=== PATIENT | female | born 1990 | race Caucasian/White ===

== ENCOUNTER → 2017-07-16 | Outpatient (CLI) | payer OTHER | END | disposition home or self-care (01) | LOC: C.PAPS 14:14 | PROVIDERS: ATTEND Obstetrics & Gynecology | DX: Z01.419 Encounter for gynecological examination (general) (routine) without abnormal findings (principal) ==

== ENCOUNTER → 2017-08-11 | Outpatient (CLI) | payer OTHER ==
--- NOTE | 2017-08-11 11:42 | DIAGNOSTIC IMAGING REPORT ---
HYSTEROSALPINGOGRAM HISTORY: Infertility. FLUOROSCOPY TIME: 0.5 minutes. 5 fluoroscopic spot images of the pelvis. TECHNIQUE: The cervix was cannulated by the limousine rental clerk-couturiere and water soluble contrast was instilled into the uterus under fluoroscopic guidance. Multiple spot images were obtained. FINDINGS: The uterine cavity is normal in size, shape, and position. The left fallopian tube is patent and there is free peritoneal spill bilaterally. Small peritubal adhesion within the right fallopian tube which demonstrated breakthrough of contrast during the examination and free intraperitoneal spill. IMPRESSION: 1. The uterus and left fallopian tube are within normal limits. 2. Small peritubal adhesion within the right fallopian tube which demonstrated breakthrough of contrast during the examination and free intraperitoneal spill. Electronically signed by: Buddy Alvarez M.D. 08/11/2017 11:41 AM Dictated Date/Time: 08/11/2017 11:40 AM
--- NOTE | 2017-08-11 12:23 | OPERATIVE REPORT ---
DATE OF OPERATION: 08/11/2017 PREOPERATIVE DIAGNOSIS: Infertility. POSTOPERATIVE DIAGNOSIS: Same. PROCEDURE: Hysterosalpingogram. SURGEON: Karina Ramey MD DESCRIPTION OF PROCEDURE: The patient was identified in the radiology suite by her bracelet and birthdate. It was confirmed that we were doing hysterosalpingogram. Her period ended 10 days ago. She was given no preoperative antibiotics. She has no allergies. The patient was placed in a frogleg position. The speculum was placed in vagina. The cervix was cleaned with Betadine. The anterior lip of the cervix was grasped with an Allis. The introducer was placed into the cervix. The dye was injected into the cervix until the adequate pictures were taken by radiology and the procedure was terminated. All instruments removed from the vagina. Hemostasis was noted to be excellent and the patient was discharged home in stable condition. I attest to the content of the Intraoperative Record and any orders documented therein. Any exception s are noted below.
== END | disposition home or self-care (01) ==
LOC: C.RAD 10:59
PROVIDERS: ATTEND Obstetrics & Gynecology
DX: N97.9 Female infertility, unspecified (principal); N73.6 Female pelvic peritoneal adhesions (postinfective)

== ENCOUNTER → 2017-11-23 | Outpatient (CLI) | payer OTHER | END | disposition home or self-care (01) | LOC: C.LAB1850 07:15 | PROVIDERS: ATTEND Specialist | DX: Z32.00 Encounter for pregnancy test, result unknown (principal) ==

== ENCOUNTER → 2017-11-26 | Outpatient (CLI) | payer OTHER ==
[2017-11-26 13:23] LABS: FOLLICLE STIMULAT HORMONE 14.14 IU/L
== END | disposition home or self-care (01) ==
LOC: C.LAB1850 12:01
PROVIDERS: ATTEND Specialist
DX: Z31.41 Encounter for fertility testing (principal)

== ENCOUNTER → 2017-12-18 | Outpatient (CLI) | payer OTHER | END | disposition home or self-care (01) | LOC: C.LAB1850 08:59 | PROVIDERS: ATTEND Specialist | DX: Z32.00 Encounter for pregnancy test, result unknown (principal) ==

== ENCOUNTER 2018-09-15 08:15 | Inpatient (IN) ==
[2018-09-15] MEDS ORDERED: OXYTOCIN 30 UNITS/500 ML BAG IV PRN ×3 (08:38→18:33)
[2018-09-15 09:10] LABS: Hematocrit (blood only) 37.5 % (37-47); Mean Corpuscular Volume 88.4 fL (80-100); Mean Platelet Volume 9.8 fL (7.4-10.4); Platelet Count 207 K/uL (130-400); RDW Coefficient of Variation 13.2 % (11.5-14.5); RDW Standard Deviation 42.2 fL (36.4-46.3); Red Blood Count 4.24 M/uL (4.2-5.4); White Blood Count 11.82 K/uL (4.8-10.8)
[2018-09-15 09:12] LABS: Mean Corpuscular Hgb Conc 34.7 g/dL (32-36)
--- NOTE | 2018-09-15 09:19 | History & Physical Report ---
Date of Service September 15, 2018 Assessment & Plan (1) PROM (premature rupture of membranes): 27 year old here for PROM * A-, GBS-. Rubella Immune, received Rhogam at 28 weeks * Will induce labor with oxytocin 30 units in 500 mL per labor induction protocol * NPO * Anticipate Normal Vaginal Delivery * Informed pediatrics about [facility]'s recommendation for post delivery echo and provided report History of Present Illness Primary Care Provider: Criss Julian DO Grzegorz Grossman is a 27 year who presents today after her water broke this morning around 5:30. She has not been having regular contractions though she does get some strong contractions sporadically throughout the day for past 2 days. She has not noticed any prior discharge but since her water broke this morning she also is noticing a scant amount of blood. Patient has felt good movement for past several days, but has had periods in her where she felt decreased movement. She does not endorse any vision changes, abdominal pain, headaches, or hand swelling. Some mild pedal edema. OB HISTORY No previous pregnancies. Current complicated by maternal obesity, polycystic ovarian syndrome and patient is Rh negative. There was difficulty in evaluating patient' s heart structures on ultrasound, unable to rule out VSD referred to [facility] for echo. echo showed left heart size on lower limit of normal and mild flow acceleration across ductal arch. Recommendation was for post-delivery echo. Patient also with decreased movement at last appointment. Had NST which was non reactive and was sent over to L and D for monitoring. Had reactive NST here and was sent home with reassurance at that time. Blood type is A-, GBS -, Rubella Immune. All other serologic testing normal. At last appointment 09/10 patient was found to be 2-3/70/-2 on exam. PMH: Depression Oral herpes simplex GERD PSH: [place] teeth Tonsils and adenoids Gall bladder Gastric sleeve Family History: No significant family history provided Social History: Here with partner, Lynnette, and mother Allergies Allergy/AdvReac Type Severity Reaction Status Date / Time No Known Allergies Allergy Unknown Verified 08/09/18 19:08 Home Medications Home Medications Medication Instructions Recorded Confirmed Type PNV cmb#95-ferrous fumarate-FA 1 tab PO DAILY 09/15/18 09/15/18 History [] sertraline [Zoloft] 50 mg PO DAILY 09/15/18 09/15/18 History Past Med/Surg History Medical History [place] teeth extracted Cholecystectomy planned Surgical History Hx of tonsillectomy H/O bariatric surgery Social History Communication Ability: Effective Polisher Brass Required: No Beliefs That Will Affect Care: None marital status: Current Living Situation: Spouse Current Living Situation Comment: [place] in a townhouse Other Information That Helps Us Care for You: No Feels Safe at Home: Yes Smoking Status: Never smoker Second Hand Exposure: No Hx Alcohol Use: No Hx Substance Use: No Physical Exam Constitutional: WD/WN, vitals as above Respiratory: normal respiratory effort, lungs clear to auscultation Cardiovascular: Rate/Rhythm: regular rate and regular rhythm Heart Sounds: no click, no gallop, no murmur and no cardiac rub Vessels: dorsalis pedis pulses present Extremities: + pedal edema (mild) Gastrointestinal (Abdomen): Inspection/Auscultation: abdomen normal to inspection Percussion/Palpation: abdomen soft; abdomen nontender Gravid uterus otherwise soft non tender abdomen Skin: no rashes, warm and dry Results & Data Vital Signs (Past 12 Hours) Vital Signs Temp Pulse Resp BP 09/15/18 08:34 36.7 C 107 H 18 133/89 09/15/18 08:30 107 H 133/89 Supervising Physician Co-Signing Physician Notes Resident Physician Supervision Note: I interviewed and examined the patient. Discussed with Dr. Patel and agree with findings and plan as documented in the note. Any exceptions or clarifications are listed here: pt seen and examined and sve 3/70/-2 arom forebag clear. no regular ctx. fhts categ 1. discussed ambulation with intermittent monitoring and rec for pitocin induction if no labor pattern by 4- 6hr from rom. pt agreeable. rh neg, echo findings noted. gbs neg. efw 7- 8#. Documented By: Amairani Farrell MD, FACOG Resident Activity Tracking Resident Involvement: Resident Care Provided Care Provided: OB Delivery
--- NOTE | 2018-09-15 12:11 | Obstetrical Progress Note ---
Date of Service September 15, 2018 Assessment & Plan (1) PROM (premature rupture of membranes): spoke to nurse. pt ambulating. no real ctx pattern. rec pitocin. orders placed. nursing to relay my recommendations to pt and let me know if any questions. now approx 6hr from rom. (2) with 37 weeks completed gestation: Results & Data Vital Signs (Past 12 Hours) Vital Signs Temp Pulse Resp BP 09/15/18 11:25 98.8 F 80 20 125/68 09/15/18 08:34 98.1 F 107 H 18 133/89 09/15/18 08:30 107 H 133/89
[2018-09-15] MEDS: LACTATED RINGER'S 1,000 ML IV PRN ×4 (12:50→22:30)
[2018-09-15] MEDS ORDERED: BUPIVACAINE 0.25% 30 ML VIAL ONE ×2 (14:21→21:59)
[2018-09-15] MEDS ORDERED: ePHEDrine sulfate 50 MG/ML AMP ONE (14:22)
[2018-09-15] MEDS ORDERED: fentaNYL citrate 100 MCG/2 ML VIAL ONE ×2 (14:22→21:58)
[2018-09-15] MEDS ORDERED: fentaNYL 2MCG/ML ROPIV 1.25MG/ML 100 ML BAG EPI ONE (14:22)
--- NOTE | 2018-09-15 14:29 | Obstetrical Progress Note ---
Date of Service September 15, 2018 Assessment & Plan (1) with 37 weeks completed gestation: (2) PROM (premature rupture of membranes): cont with pit. epidural desired, consult anesthesia. fhts categ 1. Subjective pt feeling more pain with ctx and requests epidural, she is getting her ivf bolus right now. i was called by nurse for consideration of internal monitors due to not able to trace baby or ctx well. Physical Exam Constitutional: WD/WN, vitals as above Genitourinary: Manual OB Exam: + cervical dilation 4 cm, + cervical effacement 80% and + station -2 OB Exam Monitor Tracing: + external FHT monitor used (135 mod variability), + external uterine monitor used (not traced well. ), + intra-uterine pressure catheter used (IUPC placed and now ctx q3 min, mvu's inadeq, pit at 3) and + category I Results & Data Vital Signs (Past 12 Hours) Vital Signs Temp Pulse Resp BP Pulse Ox 09/15/18 14:21 83 100 09/15/18 14:16 86 100 09/15/18 12:50 98.4 F 88 18 132/81 09/15/18 11:25 98.8 F 80 20 125/68 09/15/18 10:00 98.1 F 16 09/15/18 08:34 98.1 F 107 H 18 133/89 09/15/18 08:30 107 H 133/89
--- NOTE | 2018-09-15 14:40 | Anesthesiology Consultation ---
Date of Service September 15, 2018 Assessment & Plan (1) Encounter for pre-operative examination: Chart Review Chart Review: Acceptable Risk for Labor Epidural History Height/Weight Height: 5 ft 7 in Weight: 147.418 kg Allergies Allergy/AdvReac Type Severity Reaction Status Date / Time No Known Allergies Allergy Unknown Verified 08/09/18 19:08 Medications Home Medications Medication Instructions Recorded Confirmed Last Taken PNV cmb#95-ferrous fumarate-FA 1 tab PO DAILY 09/15/18 09/15/18 09/14/18 [] sertraline [Zoloft] 50 mg PO DAILY 09/15/18 09/15/18 09/15/18 Active Medications Generic Name Dose Route Start Last Admin Trade Name Freq PRN Reason Stop Dose Admin Lactated Ringer's 1,000 mls @ 125 mls/hr 09/15/18 08:38 09/15/18 14:10 Lr IV 09/17/18 08:37 999 mls/hr .Q8H PRN Infusion L&D Protocol Protocol Oxytocin 30 units in 500 mls @ 5 mls/hr 09/15/18 12:09 09/15/18 14:18 Pitocin IV 09/17/18 12:08 0.3 units/hr .Q24H PRN 5 mls/hr Labor Induction/Augmentation Titration Protocol 0.3 UNITS/HR Past Medical History Medical History [place] teeth extracted Cholecystectomy planned Past Surgical History Surgical History Hx of tonsillectomy H/O bariatric surgery Social History Smoking Status: Never smoker Hx Alcohol Use: No Hx Substance Use: No Physical Exam Vital Signs Last Vital Signs Temp 36.9 C 09/15/18 12:50 Pulse 77 09/15/18 14:36 Resp 18 09/15/18 12:50 BP 132/81 09/15/18 12:50 Pulse Ox 100 09/15/18 14:36 Testing Laboratory Results 09/15/18 08:51
[2018-09-15] MEDS ORDERED: NALOXONE HCL 0.4 MG/1 ML VIAL/CARP IV PRN (15:22)
[2018-09-15] MEDS ORDERED: ePHEDrine sulfate 50 MG/ML AMP IV PRN (15:22)
[2018-09-15] MEDS ORDERED: ONDANSETRON INJ 2 MG/ML 2 ML VIAL IV PRN (15:22)
[2018-09-15] MEDS ORDERED: NALOXONE HCL 1 MG in SODIUM CHLORIDE 0.9% 1000ML 1,000 ML IV PRN (15:22)
--- NOTE | 2018-09-15 18:30 | Obstetrical Progress Note ---
Date of Service September 15, 2018 Subjective pt comfortable, says she feels some pressure on and off but no overwhelming. Physical Exam Constitutional: WD/WN, vitals as above Genitourinary: Manual OB Exam: + cervical dilation 4 cm, + cervical effacement 80% and + station -2 OB Exam Monitor Tracing: + external FHT monitor used (150 mod variability, +scalp stim response ), + intra-uterine pressure catheter used (ctx irreg, doubt mvu's adeq pit at 11) and + category II (variables) Results & Data Vital Signs (Past 12 Hours) Vital Signs Temp Pulse Resp BP Pulse Ox 09/15/18 18:26 84 100 09/15/18 18:21 68 100 09/15/18 18:16 70 100 09/15/18 18:14 74 129/75 09/15/18 18:11 70 100 09/15/18 18:06 76 100 09/15/18 18:01 75 126/69 100 09/15/18 17:56 68 100 09/15/18 17:51 65 100 09/15/18 17:46 82 100 09/15/18 17:45 83 93 09/15/18 17:44 72 145/89 H 09/15/18 17:41 67 100 09/15/18 17:36 66 100 09/15/18 17:31 70 100 09/15/18 17:29 64 151/86 H 09/15/18 17:26 66 100 09/15/18 17:21 73 100 09/15/18 17:16 82 100 09/15/18 17:14 74 100/58 L 09/15/18 17:11 71 100 09/15/18 17:06 70 100 09/15/18 17:01 85 99 09/15/18 17:00 90 117/77 09/15/18 16:56 70 100 09/15/18 16:51 73 100 09/15/18 16:46 76 100 09/15/18 16:45 80 18 142/92 H 09/15/18 16:41 69 100 09/15/18 16:36 86 100 09/15/18 16:31 72 18 148/76 H 100 09/15/18 16:26 82 100 09/15/18 16:21 78 100 09/15/18 16:16 87 139/61 100 09/15/18 16:15 97.9 F 18 09/15/18 16:06 70 100 09/15/18 16:01 72 100 09/15/18 15:57 69 18 134/63 09/15/18 15:56 76 100 09/15/18 15:55 78 130/58 L 09/15/18 15:53 76 18 134/58 L 09/15/18 15:51 75 139/63 100 09/15/18 15:50 77 138/63 09/15/18 15:47 88 18 130/70 09/15/18 15:46 84 141/68 H 100 09/15/18 15:44 87 18 145/76 H 09/15/18 15:42 81 140/64 09/15/18 15:41 79 100 09/15/18 15:39 88 18 138/63 09/15/18 15:37 95 H 133/66 09/15/18 15:36 88 18 123/60 100 09/15/18 15:34 84 124/66 09/15/18 15:32 84 18 137/63 09/15/18 15:31 90 100 09/15/18 15:28 92 H 18 130/60 09/15/18 15:26 89 100 09/15/18 15:25 93 H 125/57 L 09/15/18 15:24 85 135/59 L 09/15/18 15:21 88 138/64 100 09/15/18 15:20 94 H 135/60 09/15/18 15:16 92 H 103/56 L 100 09/15/18 15:14 86 18 107/58 L 09/15/18 15:12 83 118/58 L 09/15/18 15:11 88 100 09/15/18 15:10 99 H 18 129/58 L 09/15/18 15:08 98 H 129/61 09/15/18 15:06 98 H 128/85 100 09/15/18 15:04 85 157/88 H 09/15/18 15:01 85 99 09/15/18 14:56 79 99 09/15/18 14:51 92 H 81 L 09/15/18 14:50 83 87 L 09/15/18 14:46 85 100 09/15/18 14:43 98.2 F 96 H 18 85 L 09/15/18 14:41 85 100 09/15/18 14:36 77 100 09/15/18 14:31 81 100 09/15/18 14:26 77 100 09/15/18 14:21 83 100 09/15/18 14:16 86 100 09/15/18 12:50 98.4 F 88 18 132/81 09/15/18 11:25 98.8 F 80 20 125/68 09/15/18 10:00 98.1 F 16 09/15/18 08:34 98.1 F 107 H 18 133/89 09/15/18 08:30 107 H 133/89
[2018-09-15] MEDS ORDERED: Nursing to Pharmacy Communication ONE (20:34)
--- NOTE | 2018-09-15 21:19 | Obstetrical Progress Note ---
Date of Service September 15, 2018 Assessment & Plan (1) PROM (premature rupture of membranes): (2) with 37 weeks completed gestation: cont with pit to keep mvu's adeq. consult anesth for pain control. good cx change compared to my last exam. Subjective feeling alot of pain with ctx Physical Exam Constitutional: WD/WN, vitals as above Genitourinary: Manual OB Exam: + cervical dilation 5 cm, + cervical effacement 90% and + station 0 OB Exam Monitor Tracing: + scalp electrode used (150 mod variability, +accels, +variable decels), + intra-uterine pressure catheter used (mvus adeq, pit at 14) and + category II Results & Data Vital Signs (Past 12 Hours) Vital Signs Temp Pulse Resp BP Pulse Ox 09/15/18 21:13 82 149/83 H 09/15/18 21:11 90 99 09/15/18 21:06 79 99 09/15/18 21:01 97 H 100 09/15/18 20:58 83 140/77 09/15/18 20:56 85 100 09/15/18 20:54 18 09/15/18 20:51 72 100 09/15/18 20:46 80 100 09/15/18 20:43 69 134/82 09/15/18 20:41 69 100 09/15/18 20:36 74 100 09/15/18 20:31 79 100 09/15/18 20:29 69 133/73 09/15/18 20:26 81 100 09/15/18 20:21 79 100 09/15/18 20:16 80 100 09/15/18 20:15 68 131/70 09/15/18 20:11 98.4 F 79 18 98 09/15/18 20:06 68 100 09/15/18 20:01 67 100 09/15/18 20:00 69 132/61 09/15/18 19:56 79 100 09/15/18 19:51 70 100 09/15/18 19:46 72 100 09/15/18 19:43 66 140/80 09/15/18 19:41 65 100 09/15/18 19:36 63 100 09/15/18 19:31 81 100 09/15/18 19:28 75 134/73 09/15/18 19:26 79 100 09/15/18 19:21 72 99 05 19:16 68 99 05 19:13 68 136/82 05 19:11 98.2 F 76 18 100 05 19:06 70 100 05 19:01 76 100 05 18:58 68 132/77 05 18:56 71 100 05 18:51 74 100 05 18:46 67 100 05 18:45 72 93 05 18:43 75 134/82 05 18:41 73 96 05 18:36 73 100 05 18:31 73 100 05 18:29 74 133/73 05 18:26 84 100 05 18:21 68 100 09/15/18 18:18 98.1 F 18 09/15/18 18:16 70 100 09/15/18 18:14 74 129/75 09/15/18 18:11 70 100 05 18:06 76 100 09/15/18 18:01 75 126/69 100 05 17:56 68 100 09/15/18 17:51 65 100 09/15/18 17:46 82 100 09/15/18 17:45 83 93 09/15/18 17:44 72 145/89 H 09/15/18 17:41 67 100 09/15/18 17:36 66 100 09/15/18 17:31 70 100 09/15/18 17:29 64 151/86 H 09/15/18 17:26 66 100 09/15/18 17:21 73 100 09/15/18 17:16 82 100 09/15/18 17:14 74 100/58 L 09/15/18 17:11 71 100 09/15/18 17:06 70 100 09/15/18 17:01 85 99 09/15/18 17:00 90 117/77 09/15/18 16:56 70 100 09/15/18 16:51 73 100 05 16:46 76 100 09/15/18 16:45 80 18 142/92 H 09/15/18 16:41 69 100 05 16:36 86 100 05/22/19 16:31 72 18 148/76 H 100 09/15/18 16:26 82 100 09/15/18 16:21 78 100 09/15/18 16:16 87 139/61 100 09/15/18 16:15 97.9 F 18 09/15/18 16:06 70 100 09/15/18 16:01 72 100 09/15/18 15:57 69 18 134/63 09/15/18 15:56 76 100 09/15/18 15:55 78 130/58 L 09/15/18 15:53 76 18 134/58 L 09/15/18 15:51 75 139/63 100 09/15/18 15:50 77 138/63 09/15/18 15:47 88 18 130/70 09/15/18 15:46 84 141/68 H 100 09/15/18 15:44 87 18 145/76 H 09/15/18 15:42 81 140/64 09/15/18 15:41 79 100 09/15/18 15:39 88 18 138/63 09/15/18 15:37 95 H 133/66 09/15/18 15:36 88 18 123/60 100 09/15/18 15:34 84 124/66 09/15/18 15:32 84 18 137/63 09/15/18 15:31 90 100 09/15/18 15:28 92 H 18 130/60 09/15/18 15:26 89 100 09/15/18 15:25 93 H 125/57 L 09/15/18 15:24 85 135/59 L 09/15/18 15:21 88 138/64 100 09/15/18 15:20 94 H 135/60 09/15/18 15:16 92 H 103/56 L 100 09/15/18 15:14 86 18 107/58 L 09/15/18 15:12 83 118/58 L 09/15/18 15:11 88 100 09/15/18 15:10 99 H 18 129/58 L 09/15/18 15:08 98 H 129/61 09/15/18 15:06 98 H 128/85 100 09/15/18 15:04 85 157/88 H 09/15/18 15:01 85 99 09/15/18 14:56 79 99 05/19 14:51 92 H 81 L 09/15/18 14:50 83 87 L 09/15/18 14:46 85 100 09/15/18 14:43 98.2 F 96 H 18 85 L 09/15/18 14:41 85 100 09/15/18 14:36 77 100 09/15/18 14:31 81 100 09/15/18 14:26 77 100 09/15/18 14:21 83 100 09/15/18 14:16 86 100 09/15/18 12:50 98.4 F 88 18 132/81 09/15/18 11:25 98.8 F 80 20 125/68 09/15/18 10:00 98.1 F 16
[2018-09-15] MEDS ORDERED: SODIUM CHLORIDE 0.9% INJ 10 ML VIAL ONE (21:28)
[2018-09-15] MEDS: fentaNYL 2MCG/ML ROPIV 1.25MG/ML 100 ML BAG EPI PRN (22:11)
--- NOTE | 2018-09-16 03:17 | Obstetrical Progress Note ---
Date of Service September 16, 2018 Assessment & Plan (1) with 37 weeks completed gestation: (2) PROM (premature rupture of membranes): good cx change. fhts categ 2, was going to try amnioinfusion but at this point variables can be explained by cx change. anticip pushing soon. Subjective had her epidural replaced. worked at first but now with right sided pain. she does feel pressure Physical Exam Constitutional: WD/WN, vitals as above Genitourinary: Manual OB Exam: + cervical dilation 9 cm (with ctx), + cervical effacement 100% and + station + 2 (with ctx) OB Exam Monitor Tracing: + scalp electrode used (135 mod variability, +accels +variable decels. +response to scalp stim), + intra-uterine pressure catheter used (q2-3 mvus about 180, pit at 6) and + category II Results & Data Vital Signs (Past 12 Hours) Vital Signs Temp Pulse Resp BP Pulse Ox 09/16/18 03:07 107 H 97 09/16/18 03:04 97 H 145/94 H 09/16/18 03:02 96 H 100 09/16/18 02:57 84 98 09/16/18 02:54 85 143/91 H 09/16/18 02:52 82 98 09/16/18 02:51 93 H 174/96 H 09/16/18 02:47 85 98 09/16/18 02:44 99.1 F 20 09/16/18 02:42 107 H 158/79 H 97 09/16/18 02:37 94 H 97 09/16/18 02:35 95 H 167/88 H 09/16/18 02:32 87 97 09/16/18 02:27 92 H 98 09/16/18 02:22 97 H 97 09/16/18 02:20 82 138/80 09/16/18 02:17 80 98 09/16/18 02:12 86 98 09/16/18 02:07 82 98 09/16/18 02:06 87 131/77 09/16/18 02:02 81 98 09/16/18 01:57 90 97 09/16/18 01:52 86 97 09/16/18 01:49 83 16 123/58 L 09/16/18 01:47 80 97 09/16/18 01:42 99.5 F 89 16 98 09/16/18 01:37 86 98 09/16/18 01:34 101 H 145/85 H 09/16/18 01:32 85 97 09/16/18 01:27 80 97 09/16/18 01:25 16 09/16/18 01:22 82 97 09/16/18 01:19 96 H 143/86 H 09/16/18 01:17 88 98 09/16/18 01:12 100 H 97 09/16/18 01:07 98 H 98 09/16/18 01:04 90 16 137/81 09/16/18 01:02 81 97 09/16/18 00:57 83 97 09/16/18 00:52 80 98 09/16/18 00:49 90 132/77 09/16/18 00:47 82 97 09/16/18 00:42 80 98 09/16/18 00:37 76 98 09/16/18 00:34 78 138/75 09/16/18 00:32 76 99 09/16/18 00:27 86 99 09/16/18 00:22 85 100 09/16/18 00:19 93 H 146/80 H 09/16/18 00:17 81 100 09/16/18 00:15 99.1 F 09/16/18 00:12 91 H 99 09/16/18 00:07 96 H 99 09/16/18 00:04 100 H 16 131/78 09/16/18 00:02 84 100 09/15/18 23:57 80 99 09/15/18 23:52 77 98 05 23:49 76 126/65 05 23:47 77 98 05 23:42 77 98 05 23:37 76 99 05 23:35 77 122/63 0519 23:32 81 100 05 23:27 90 100 05 23:22 81 100 05 23:19 98.6 F 16 09/15/18 23:17 95 H 133/67 100 05 23:12 92 H 160/90 H 100 05 23:07 81 100 05 23:06 87 16 132/63 05 23:02 89 142/63 H 100 05/22/19 22:59 95 H 93 09/15/18 22:57 84 100 09/15/18 22:56 85 121/63 09/15/18 22:52 85 100 09/15/18 22:51 80 126/70 09/15/18 22:47 98 H 114/62 100 09/15/18 22:41 88 130/72 100 09/15/18 22:40 16 09/15/18 22:36 93 H 130/63 99 09/15/18 22:31 103 H 122/63 100 09/15/18 22:30 96 H 18 126/64 09/15/18 22:28 116 H 92 09/15/18 22:26 107 H 125/71 99 09/15/18 22:25 105 H 125/73 09/15/18 22:21 114 H 99 09/15/18 22:18 103 H 158/94 H 09/15/18 22:16 104 H 97 09/15/18 22:12 105 H 94 09/15/18 22:11 110 H 98 09/15/18 22:06 102 H 99 09/15/18 22:03 106 H 150/87 H 09/15/18 22:01 121 H 98 09/15/18 21:58 102 H 146/85 H 09/15/18 21:56 93 H 192/94 H 97 09/15/18 21:51 95 H 97 09/15/18 21:49 86 162/96 H 09/15/18 21:46 97 H 156/97 H 97 09/15/18 21:43 100 H 146/98 H 09/15/18 21:41 93 H 99 09/15/18 21:40 102 H 151/80 H 09/15/18 21:38 98.2 F 20 09/15/18 21:36 82 99 09/15/18 21:31 91 H 100 09/15/18 21:29 90 139/71 09/15/18 21:26 98 H 97 09/15/18 21:21 87 98 09/15/18 21:18 90 90 09/15/18 21:16 82 99 09/15/18 21:13 82 149/83 H 09/15/18 21:11 90 99 09/15/18 21:06 79 99 09/15/18 21:01 97 H 100 05 20:58 83 140/77 05 20:56 85 100 05/19 20:54 18 05 20:51 72 100 0519 20:46 80 100 05/19 20:43 69 134/82 05 20:41 69 100 052219 20:36 74 100 05 20:31 79 100 052219 20:29 69 133/73 0519 20:26 81 100 05/22/19 20:21 79 100 0519 20:16 80 100 0519 20:15 68 131/70 05 20:11 98.4 F 79 18 98 05 20:06 68 100 05 20:01 67 100 05 20:00 69 132/61 05 19:56 79 100 05 19:51 70 100 05 19:46 72 100 05 19:43 66 140/80 05 19:41 65 100 05 19:36 63 100 05 19:31 81 100 05 19:28 75 134/73 05 19:26 79 100 05 19:21 72 99 0519 19:16 68 99 05 19:13 68 136/82 05 19:11 98.2 F 76 18 100 05 19:06 70 100 05 19:01 76 100 0519 18:58 68 132/77 0519 18:56 71 100 0519 18:51 74 100 05/22/19 18:46 67 100 05/22/19 18:45 72 93 05/19 18:43 75 134/82 0519 18:41 73 96 05//19 18:36 73 100 0519 18:31 73 100 05/2219 18:29 74 133/73 0522/19 18:26 84 100 052219 18:21 68 100 05//19 18:18 98.1 F 18 05//19 18:16 70 100 09/15/18 18:14 74 129/75 09/15/18 18:11 70 100 09/15/18 18:06 76 100 09/15/18 18:01 75 126/69 100 09/15/18 17:56 68 100 09/15/18 17:51 65 100 09/15/18 17:46 82 100 09/15/18 17:45 83 93 09/15/18 17:44 72 145/89 H 09/15/18 17:41 67 100 09/15/18 17:36 66 100 09/15/18 17:31 70 100 09/15/18 17:29 64 151/86 H 09/15/18 17:26 66 100 09/15/18 17:21 73 100 09/15/18 17:16 82 100 09/15/18 17:14 74 100/58 L 09/15/18 17:11 71 100 09/15/18 17:06 70 100 09/15/18 17:01 85 99 09/15/18 17:00 90 117/77 09/15/18 16:56 70 100 09/15/18 16:51 73 100 09/15/18 16:46 76 100 09/15/18 16:45 80 18 142/92 H 09/15/18 16:41 69 100 09/15/18 16:36 86 100 09/15/18 16:31 72 18 148/76 H 100 09/15/18 16:26 82 100 09/15/18 16:21 78 100 09/15/18 16:16 87 139/61 100 09/15/18 16:15 97.9 F 18 09/15/18 16:06 70 100 09/15/18 16:01 72 100 09/15/18 15:57 69 18 134/63 09/15/18 15:56 76 100 09/15/18 15:55 78 130/58 L 09/15/18 15:53 76 18 134/58 L 09/15/18 15:51 75 139/63 100 09/15/18 15:50 77 138/63 09/15/18 15:47 88 18 130/70 09/15/18 15:46 84 141/68 H 100 09/15/18 15:44 87 18 145/76 H 09/15/18 15:42 81 140/64 09/15/18 15:41 79 100 09/15/18 15:39 88 18 138/63 09/15/18 15:37 95 H 133/66 09/15/18 15:36 88 18 123/60 100 09/15/18 15:34 84 124/66 09/15/18 15:32 84 18 137/63 09/15/18 15:31 90 100 09/15/18 15:28 92 H 18 130/60 09/15/18 15:26 89 100 09/15/18 15:25 93 H 125/57 L 09/15/18 15:24 85 135/59 L 09/15/18 15:21 88 138/64 100 09/15/18 15:20 94 H 135/60 09/15/18 15:16 92 H 103/56 L 100 09/15/18 15:14 86 18 107/58 L 09/15/18 15:12 83 118/58 L
[2018-09-16] MEDS: LACTATED RINGER'S 1,000 ML IV PRN (03:29)
--- NOTE | 2018-09-16 03:47 | Obstetrical Progress Note ---
Date of Service September 16, 2018 Assessment & Plan (1) with 37 weeks completed gestation: (2) PROM (premature rupture of membranes): good cx change but ctx inadeq and still a rim. will try to get her more comfortable, consult anesth. will start amnioinfusion. pt aware of plan. Subjective has right sided pain but not severe. Physical Exam Constitutional: WD/WN, vitals as above Genitourinary: Manual OB Exam: + cervical dilation (rim with ctx ), + cervical effacement 100% and + station + 1 OB Exam Monitor Tracing: + scalp electrode used (150 mod variability, +scalp stim response. +variables. ) and + category II Results & Data Vital Signs (Past 12 Hours) Vital Signs Temp Pulse Resp BP Pulse Ox 09/16/18 03:42 95 H 99 09/16/18 03:37 99.0 F 88 99 09/16/18 03:34 85 16 136/71 09/16/18 03:32 95 H 99 09/16/18 03:27 102 H 99 09/16/18 03:22 92 H 98 09/16/18 03:19 96 H 137/63 09/16/18 03:17 88 99 09/16/18 03:12 100 H 99 09/16/18 03:07 107 H 97 09/16/18 03:04 97 H 145/94 H 09/16/18 03:02 96 H 100 09/16/18 02:57 84 98 09/16/18 02:54 85 143/91 H 09/16/18 02:52 82 98 09/16/18 02:51 93 H 174/96 H 09/16/18 02:47 85 98 09/16/18 02:44 99.1 F 20 09/16/18 02:42 107 H 158/79 H 97 09/16/18 02:37 94 H 97 09/16/18 02:35 95 H 167/88 H 09/16/18 02:32 87 97 09/16/18 02:27 92 H 98 09/16/18 02:22 97 H 97 09/16/18 02:20 82 138/80 09/16/18 02:17 80 98 09/16/18 02:12 86 98 09/16/18 02:07 82 98 09/16/18 02:06 87 131/77 09/16/18 02:02 81 98 09/16/18 01:57 90 97 09/16/18 01:52 86 97 09/16/18 01:49 83 16 123/58 L 09/16/18 01:47 80 97 09/16/18 01:42 99.5 F 89 16 98 09/16/18 01:37 86 98 09/16/18 01:34 101 H 145/85 H 09/16/18 01:32 85 97 09/16/18 01:27 80 97 09/16/18 01:25 16 09/16/18 01:22 82 97 09/16/18 01:19 96 H 143/86 H 09/16/18 01:17 88 98 09/16/18 01:12 100 H 97 09/16/18 01:07 98 H 98 09/16/18 01:04 90 16 137/81 09/16/18 01:02 81 97 09/16/18 00:57 83 97 09/16/18 00:52 80 98 09/16/18 00:49 90 132/77 09/16/18 00:47 82 97 09/16/18 00:42 80 98 09/16/18 00:37 76 98 09/16/18 00:34 78 138/75 09/16/18 00:32 76 99 09/16/18 00:27 86 99 09/16/18 00:22 85 100 09/16/18 00:19 93 H 146/80 H 09/16/18 00:17 81 100 09/16/18 00:15 99.1 F 09/16/18 00:12 91 H 99 09/16/18 00:07 96 H 99 09/16/18 00:04 100 H 16 131/78 09/16/18 00:02 84 100 05 23:57 80 99 05 23:52 77 98 0522 23:49 76 126/65 05 23:47 77 98 05 23:42 77 98 05 23:37 76 99 05 23:35 77 122/63 052219 23:32 81 100 0522 23:27 90 100 05 23:22 81 100 05 23:19 98.6 F 16 0519 23:17 95 H 133/67 100 09/15/18 23:12 92 H 160/90 H 100 09/15/18 23:07 81 100 09/15/18 23:06 87 16 132/63 09/15/18 23:02 89 142/63 H 100 09/15/18 22:59 95 H 93 09/15/18 22:57 84 100 09/15/18 22:56 85 121/63 09/15/18 22:52 85 100 09/15/18 22:51 80 126/70 09/15/18 22:47 98 H 114/62 100 09/15/18 22:41 88 130/72 100 09/15/18 22:40 16 09/15/18 22:36 93 H 130/63 99 09/15/18 22:31 103 H 122/63 100 09/15/18 22:30 96 H 18 126/64 09/15/18 22:28 116 H 92 09/15/18 22:26 107 H 125/71 99 09/15/18 22:25 105 H 125/73 09/15/18 22:21 114 H 99 09/15/18 22:18 103 H 158/94 H 09/15/18 22:16 104 H 97 09/15/18 22:12 105 H 94 09/15/18 22:11 110 H 98 09/15/18 22:06 102 H 99 09/15/18 22:03 106 H 150/87 H 09/15/18 22:01 121 H 98 09/15/18 21:58 102 H 146/85 H 09/15/18 21:56 93 H 192/94 H 97 09/15/18 21:51 95 H 97 09/15/18 21:49 86 162/96 H 09/15/18 21:46 97 H 156/97 H 97 09/15/18 21:43 100 H 146/98 H 09/15/18 21:41 93 H 99 09/15/18 21:40 102 H 151/80 H 09/15/18 21:38 98.2 F 20 09/15/18 21:36 82 99 09/15/18 21:31 91 H 100 09/15/18 21:29 90 139/71 09/15/18 21:26 98 H 97 09/15/18 21:21 87 98 05 21:18 90 90 05 21:16 82 99 05 21:13 82 149/83 H 05 21:11 90 99 05 21:06 79 99 05 21:01 97 H 100 05 20:58 83 140/77 05 20:56 85 100 05 20:54 18 05 20:51 72 100 05 20:46 80 100 05 20:43 69 134/82 05 20:41 69 100 05 20:36 74 100 05 20:31 79 100 05 20:29 69 133/73 05 20:26 81 100 05 20:21 79 100 05 20:16 80 100 05 20:15 68 131/70 05 20:11 98.4 F 79 18 98 05 20:06 68 100 05 20:01 67 100 05 20:00 69 132/61 05 19:56 79 100 05 19:51 70 100 05 19:46 72 100 05 19:43 66 140/80 05 19:41 65 100 05 19:36 63 100 05 19:31 81 100 05 19:28 75 134/73 05 19:26 79 100 05 19:21 72 99 0519 19:16 68 99 05 19:13 68 136/82 05 19:11 98.2 F 76 18 100 05 19:06 70 100 05 19:01 76 100 05 18:58 68 132/77 0519 18:56 71 100 05 18:51 74 100 05 18:46 67 100 05 18:45 72 93 0519 18:43 75 134/82 05 18:41 73 96 05/ 18:36 73 100 05 18:31 73 100 05 18:29 74 133/73 05 18:26 84 100 09/15/18 18:21 68 100 09/15/18 18:18 98.1 F 18 09/15/18 18:16 70 100 09/15/18 18:14 74 129/75 09/15/18 18:11 70 100 09/15/18 18:06 76 100 09/15/18 18:01 75 126/69 100 05 17:56 68 100 09/15/18 17:51 65 100 09/15/18 17:46 82 100 09/15/18 17:45 83 93 09/15/18 17:44 72 145/89 H 09/15/18 17:41 67 100 09/15/18 17:36 66 100 09/15/18 17:31 70 100 09/15/18 17:29 64 151/86 H 09/15/18 17:26 66 100 09/15/18 17:21 73 100 09/15/18 17:16 82 100 09/15/18 17:14 74 100/58 L 09/15/18 17:11 71 100 09/15/18 17:06 70 100 09/15/18 17:01 85 99 09/15/18 17:00 90 117/77 09/15/18 16:56 70 100 09/15/18 16:51 73 100 09/15/18 16:46 76 100 09/15/18 16:45 80 18 142/92 H 09/15/18 16:41 69 100 09/15/18 16:36 86 100 09/15/18 16:31 72 18 148/76 H 100 09/15/18 16:26 82 100 09/15/18 16:21 78 100 09/15/18 16:16 87 139/61 100 09/15/18 16:15 97.9 F 18 09/15/18 16:06 70 100 09/15/18 16:01 72 100 09/15/18 15:57 69 18 134/63 05 15:56 76 100 05 15:55 78 130/58 L 09/15/18 15:53 76 18 134/58 L 09/15/18 15:51 75 139/63 100 09/15/18 15:50 77 138/63 09/15/18 15:47 88 18 130/70 09/15/18 15:46 84 141/68 H 100
[2018-09-16] MEDS: fentaNYL 2MCG/ML ROPIV 1.25MG/ML 100 ML BAG EPI PRN (05:43)
[2018-09-16] MEDS ORDERED: Nursing to Pharmacy Communication ONE (05:45)
[2018-09-16] MEDS ORDERED: OXYTOCIN 30 UNITS/500 ML BAG IV PRN (07:49)
[2018-09-16] MEDS ORDERED: ACETAMINOPHEN 325 MG TAB PO PRN (07:49)
[2018-09-16] MEDS ORDERED: OXYCODONE/ACETAMINOPHEN 5mg/325mg TAB PO PRN (07:49)
[2018-09-16] MEDS ORDERED: OXYTOCIN 20 UNITS in LACTATED RINGER'S 1,000 ML IV SCH (08:00)
[2018-09-16] MEDS ORDERED: DIPHTHERIA/TETANUS/PERTUSSIS 0.5 ML SYR/VIAL IM ONE (08:30)
[2018-09-16] MEDS ORDERED: HYDROCORTISONE ACETATE 25 MG SUPP PR PRN (08:30)
[2018-09-16] MEDS ORDERED: SUPERCREAM 0.870% 15 GM JAR EXT PRN (08:30)
[2018-09-16] MEDS ORDERED: BENZOCAINE 20% AER SPR 82.5 GM CAN EXT PRN (08:30)
[2018-09-16] MEDS ORDERED: LACTATED RINGER'S 1,000 ML IV SCH (08:30)
--- NOTE | 2018-09-16 08:31 | Delivery Summary ---
DATE OF OPERATION: 09/16/2018 The patient dilated to complete and pushed to deliver a viable female infant via Apgars 8,9 over a small second-degree perineal laceration. With delivery of the cephalic, loose nuchal cord x1 noted and reduced. The shoulders and body delivered with ease. Infant was vigorous and crying at . Cord clamped at 30 seconds of life and infant to maternal abdomen where the cord was then doubly clamped and cut. The infant to radiant warmer for drying and attention. Cord blood and gases obtained. Placenta delivered spontaneously and intact, 3-vessel cord. Hemostasis achieved with dilute Pitocin and uterine massage. Cervix and sulci intact. Laceration repaired in the usual fashion using 3-0 Vicryl. EBL 300 mL. Mother and baby stable in recovery. Bladder drained under sterile conditions for 50 mL. I attest to the content of the Intraoperative Record and any orders documented therein. Any exceptions are noted below. MTDD
[2018-09-16 08:34] LABS: Base Excess Cord Venous Blood -4.6 mEq/L (-7.7-1.9); Cord Venous Blood HCO3 21 mmol/L (18.4-26.8); Cord Venous Blood PCO2 40 mmHg (30.4-57.2); Cord Venous Blood PO2 32 mmHg (14.1-43.3); Cord Venous Blood pH 7.33 (7.20-7.44); O2 Saturation Cord Venous Bld 68.5 % (<68)
--- NOTE | 2018-09-16 08:59 | Anesthesia Procedure Note ---
Date of Service September 16, 2018 Anesthesia Post Epidural Note Vital Signs Vital Signs: Temp Pulse Resp BP Pulse Ox 09/16/18 08:50 87 20 139/74 09/16/18 08:35 87 20 137/79 09/16/18 08:21 93 H 134/67 09/16/18 08:20 20 09/16/18 08:05 96 H 20 126/83 09/16/18 07:50 91 H 20 118/73 09/16/18 07:37 107 H 99 09/16/18 07:32 113 H 98 09/16/18 07:27 99 H 100 09/16/18 07:26 97 H 129/79 09/16/18 07:22 101 H 83 L 09/16/18 07:17 89 98 09/16/18 07:12 99 H 98 09/16/18 07:11 105 H 90 09/16/18 07:10 86 151/81 H 09/16/18 07:07 101 H 100 09/16/18 07:05 37.1 C 20 09/16/18 07:02 101 H 99 09/16/18 06:57 86 99 09/16/18 06:56 90 127/68 09/16/18 06:52 93 H 99 09/16/18 06:47 86 97 09/16/18 06:42 99 H 99 09/16/18 06:40 88 139/73 09/16/18 06:37 99 H 100 09/16/18 06:32 96 H 99 09/16/18 06:27 102 H 99 09/16/18 06:25 86 138/68 09/16/18 06:22 86 99 09/16/18 06:17 88 99 09/16/18 06:12 102 H 98 09/16/18 06:11 96 H 144/86 H 09/16/18 06:07 85 98 09/16/18 06:02 79 98 09/16/18 05:57 110 H 100 09/16/18 05:56 95 H 16 112/59 L 09/16/18 05:52 94 H 99 09/16/18 05:47 97 H 99 09/16/18 05:42 85 99 09/16/18 05:40 93 H 145/79 H 09/16/18 05:37 104 H 100 05/23/19 05:32 91 H 100 09/16/18 05:27 88 99 09/16/18 05:25 96 H 138/78 09/16/18 05:22 90 100 09/16/18 05:17 86 100 09/16/18 05:12 91 H 99 09/16/18 05:10 90 16 135/70 09/16/18 05:07 103 H 98 09/16/18 05:02 84 98 09/16/18 04:57 94 H 99 09/16/18 04:55 83 128/69 09/16/18 04:52 85 98 09/16/18 04:47 84 99 09/16/18 04:42 37.0 C 111 H 18 137/68 99 09/16/18 04:37 99 H 100 09/16/18 04:32 89 100 09/16/18 04:27 91 H 99 09/16/18 04:25 96 H 135/76 09/16/18 04:23 93 H 134/73 09/16/18 04:22 108 H 100 09/16/18 04:21 93 H 133/71 09/16/18 04:19 99 H 137/75 09/16/18 04:17 90 129/69 99 09/16/18 04:16 18 09/16/18 04:15 89 130/74 09/16/18 04:13 93 H 129/74 09/16/18 04:12 102 H 98 09/16/18 04:11 93 H 126/76 09/16/18 04:09 87 124/74 09/16/18 04:07 86 115/69 98 09/16/18 04:04 90 130/80 09/16/18 04:02 89 98 09/16/18 03:57 88 98 09/16/18 03:52 99 H 99 09/16/18 03:49 81 131/59 L 09/16/18 03:47 99 H 99 09/16/18 03:42 95 H 99 09/16/18 03:37 37.2 C 88 99 09/16/18 03:34 85 16 136/71 09/16/18 03:32 95 H 99 09/16/18 03:27 102 H 99 09/16/18 03:22 92 H 98 09/16/18 03:19 96 H 137/63 05 03:17 88 99 05/23/19 03:12 100 H 99 09/16/18 03:07 107 H 97 09/16/18 03:04 97 H 145/94 H 09/16/18 03:02 96 H 100 09/16/18 02:57 84 98 09/16/18 02:54 85 143/91 H 09/16/18 02:52 82 98 09/16/18 02:51 93 H 174/96 H 09/16/18 02:47 85 98 09/16/18 02:44 37.3 C 20 09/16/18 02:42 107 H 158/79 H 97 09/16/18 02:37 94 H 97 09/16/18 02:35 95 H 167/88 H 09/16/18 02:32 87 97 09/16/18 02:27 92 H 98 09/16/18 02:22 97 H 97 09/16/18 02:20 82 138/80 09/16/18 02:17 80 98 09/16/18 02:12 86 98 09/16/18 02:07 82 98 09/16/18 02:06 87 131/77 09/16/18 02:02 81 98 09/16/18 01:57 90 97 09/16/18 01:52 86 97 09/16/18 01:49 83 16 123/58 L 09/16/18 01:47 80 97 09/16/18 01:42 37.5 C 89 16 98 09/16/18 01:37 86 98 09/16/18 01:34 101 H 145/85 H 09/16/18 01:32 85 97 09/16/18 01:27 80 97 09/16/18 01:25 16 09/16/18 01:22 82 97 09/16/18 01:19 96 H 143/86 H 09/16/18 01:17 88 98 09/16/18 01:12 100 H 97 09/16/18 01:07 98 H 98 09/16/18 01:04 90 16 137/81 09/16/18 01:02 81 97 09/16/18 00:57 83 97 09/16/18 00:52 80 98 09/16/18 00:49 90 132/77 09/16/18 00:47 82 97 09/16/18 00:42 80 98 09/16/18 00:37 76 98 09/16/18 00:34 78 138/75 09/16/18 00:32 76 99 09/16/18 00:27 86 99 09/16/18 00:22 85 100 09/16/18 00:19 93 H 146/80 H 09/16/18 00:17 81 100 09/16/18 00:15 37.3 C 09/16/18 00:12 91 H 99 09/16/18 00:07 96 H 99 09/16/18 00:04 100 H 16 131/78 09/16/18 00:02 84 100 09/15/18 23:57 80 99 09/15/18 23:52 77 98 09/15/18 23:49 76 126/65 09/15/18 23:47 77 98 09/15/18 23:42 77 98 09/15/18 23:37 76 99 09/15/18 23:35 77 122/63 09/15/18 23:32 81 100 09/15/18 23:27 90 100 09/15/18 23:22 81 100 09/15/18 23:19 37.0 C 16 09/15/18 23:17 95 H 133/67 100 09/15/18 23:12 92 H 160/90 H 100 09/15/18 23:07 81 100 09/15/18 23:06 87 16 132/63 09/15/18 23:02 89 142/63 H 100 09/15/18 22:59 95 H 93 09/15/18 22:57 84 100 09/15/18 22:56 85 121/63 09/15/18 22:52 85 100 09/15/18 22:51 80 126/70 09/15/18 22:47 98 H 114/62 100 09/15/18 22:41 88 130/72 100 09/15/18 22:40 16 09/15/18 22:36 93 H 130/63 99 09/15/18 22:31 103 H 122/63 100 09/15/18 22:30 96 H 18 126/64 09/15/18 22:28 116 H 92 09/15/18 22:26 107 H 125/71 99 05 22:25 105 H 125/73 09/15/18 22:21 114 H 99 09/15/18 22:18 103 H 158/94 H 09/15/18 22:16 104 H 97 09/15/18 22:12 105 H 94 09/15/18 22:11 110 H 98 09/15/18 22:06 102 H 99 09/15/18 22:03 106 H 150/87 H 09/15/18 22:01 121 H 98 09/15/18 21:58 102 H 146/85 H 09/15/18 21:56 93 H 192/94 H 97 09/15/18 21:51 95 H 97 09/15/18 21:49 86 162/96 H 09/15/18 21:46 97 H 156/97 H 97 09/15/18 21:43 100 H 146/98 H 09/15/18 21:41 93 H 99 09/15/18 21:40 102 H 151/80 H 09/15/18 21:38 36.8 C 20 09/15/18 21:36 82 99 09/15/18 21:31 91 H 100 09/15/18 21:29 90 139/71 09/15/18 21:26 98 H 97 09/15/18 21:21 87 98 09/15/18 21:18 90 90 09/15/18 21:16 82 99 09/15/18 21:13 82 149/83 H 09/15/18 21:11 90 99 09/15/18 21:06 79 99 09/15/18 21:01 97 H 100 09/15/18 20:58 83 140/77 09/15/18 20:56 85 100 09/15/18 20:54 18 09/15/18 20:51 72 100 09/15/18 20:46 80 100 09/15/18 20:43 69 134/82 09/15/18 20:41 69 100 09/15/18 20:36 74 100 09/15/18 20:31 79 100 09/15/18 20:29 69 133/73 09/15/18 20:26 81 100 09/15/18 20:21 79 100 09/15/18 20:16 80 100 09/15/18 20:15 68 131/70 09/15/18 20:11 36.9 C 79 18 98 09/15/18 20:06 68 100 09/15/18 20:01 67 100 05 20:00 69 132/61 05 19:56 79 100 05 19:51 70 100 05 19:46 72 100 05 19:43 66 140/80 05 19:41 65 100 05 19:36 63 100 05 19:31 81 100 05 19:28 75 134/73 05 19:26 79 100 05 19:21 72 99 05 19:16 68 99 05 19:13 68 136/82 05 19:11 36.8 C 76 18 100 09/15/18 19:06 70 100 05 19:01 76 100 05 18:58 68 132/77 05 18:56 71 100 05 18:51 74 100 05 18:46 67 100 05 18:45 72 93 05 18:43 75 134/82 05 18:41 73 96 05 18:36 73 100 05 18:31 73 100 05 18:29 74 133/73 05 18:26 84 100 05 18:21 68 100 05 18:18 36.7 C 18 09/15/18 18:16 70 100 05 18:14 74 129/75 05 18:11 70 100 05 18:06 76 100 05 18:01 75 126/69 100 05 17:56 68 100 05 17:51 65 100 05 17:46 82 100 05 17:45 83 93 05 17:44 72 145/89 H 09/15/18 17:41 67 100 05 17:36 66 100 05 17:31 70 100 05 17:29 64 151/86 H 09/15/18 17:26 66 100 05 17:21 73 100 05 17:16 82 100 05 17:14 74 100/58 L 09/15/18 17:11 71 100 09/15/18 17:06 70 100 09/15/18 17:01 85 99 09/15/18 17:00 90 117/77 09/15/18 16:56 70 100 09/15/18 16:51 73 100 09/15/18 16:46 76 100 09/15/18 16:45 80 18 142/92 H 09/15/18 16:41 69 100 09/15/18 16:36 86 100 09/15/18 16:31 72 18 148/76 H 100 09/15/18 16:26 82 100 09/15/18 16:21 78 100 09/15/18 16:16 87 139/61 100 09/15/18 16:15 36.6 C 18 09/15/18 16:06 70 100 09/15/18 16:01 72 100 09/15/18 15:57 69 18 134/63 09/15/18 15:56 76 100 09/15/18 15:55 78 130/58 L 09/15/18 15:53 76 18 134/58 L 09/15/18 15:51 75 139/63 100 09/15/18 15:50 77 138/63 09/15/18 15:47 88 18 130/70 09/15/18 15:46 84 141/68 H 100 09/15/18 15:44 87 18 145/76 H 09/15/18 15:42 81 140/64 09/15/18 15:41 79 100 09/15/18 15:39 88 18 138/63 09/15/18 15:37 95 H 133/66 09/15/18 15:36 88 18 123/60 100 09/15/18 15:34 84 124/66 09/15/18 15:32 84 18 137/63 09/15/18 15:31 90 100 09/15/18 15:28 92 H 18 130/60 09/15/18 15:26 89 100 09/15/18 15:25 93 H 125/57 L 09/15/18 15:24 85 135/59 L 09/15/18 15:21 88 138/64 100 09/15/18 15:20 94 H 135/60 09/15/18 15:16 92 H 103/56 L 100 09/15/18 15:14 86 18 107/58 L 09/15/18 15:12 83 118/58 L 09/15/18 15:11 88 100 09/15/18 15:10 99 H 18 129/58 L 09/15/18 15:08 98 H 129/61 09/15/18 15:06 98 H 128/85 100 09/15/18 15:04 85 157/88 H 09/15/18 15:01 85 99 09/15/18 14:56 79 99 09/15/18 14:51 92 H 81 L 09/15/18 14:50 83 87 L 09/15/18 14:46 85 100 09/15/18 14:43 36.8 C 96 H 18 85 L 09/15/18 14:41 85 100 09/15/18 14:36 77 100 09/15/18 14:31 81 100 09/15/18 14:26 77 100 09/15/18 14:21 83 100 09/15/18 14:16 86 100 09/15/18 12:50 36.9 C 88 18 132/81 09/15/18 11:25 37.1 C 80 20 125/68 09/15/18 10:00 36.7 C 16 Pain Intensity Bilateral Abdomen: Pain Intensity: 2 Notes Mental Status: alert / awake / arousable Nausea / Vomiting: adequately controlled Pain: adequately controlled Airway Patency, RR, SpO2: stable & adequate BP & HR: stable & adequate Hydration State: stable & adequate Neuraxial Anesthesia: was administered and sensory block is resolving Anesthetic Complications: no major complications apparent and Pt Satisfied with anesthetic care Epidural: Removed without complications and With tip intact
[2018-09-16] MEDS: SERTRALINE HCL 50 MG TABLET PO SCH (09:25)
[2018-09-16] MEDS: DOCUSATE SODIUM 100 MG CAP PO SCH ×2 (09:25→19:15)
[2018-09-16] MEDS: PRENATAL VITAMIN 1 TAB PO SCH (09:25)
[2018-09-16] MEDS: IBUPROFEN 600 MG TAB PO PRN ×3 (09:54→19:15)
[2018-09-16] MEDS ORDERED: SIMETHICONE 80 MG CHEW PO PRN (17:13)
[2018-09-17] MEDS: IBUPROFEN 600 MG TAB PO PRN ×3 (03:33→18:49)
--- NOTE | 2018-09-17 07:02 | Obstetrical Progress Note ---
Date of Service <Vinod Patel MD - Last Filed: 09/17/18 07:02> September 17, 2018 Assessment & Plan <Vinod Patel MD - Last Filed: 09/17/18 07:02> (1) (spontaneous vaginal delivery): 27 year old day 1 s/p Vital Signs Reviewed and WNL Bleeding light Blood type A-, GBS -, Rubella Immune. Needing Rhogam this morning Patient doing very well clinically, eating, walking, passing gas, and using restroom without difficulty Encouraged ambulation as tolerated Encouraged continued breast feeding. Subjective <Vinod Patel MD - Last Filed: 09/17/18 07:02> Ambulation: ambulating normally Voiding: no voiding problems Passing Gas:: Yes Diet Tolerance:: regular diet Lochia:: Small Feeding Type:: breast feeding (Supplementing with formula) Current Pain Level(1-10): 0 Constitutional: no fever and no chills Respiratory: no cough, no dyspnea and no wheezing Cardiovascular: no chest pain, no dyspnea and no calf pain Gastrointestinal: no nausea and no vomiting Physical Exam <Vinod Patel MD - Last Filed: 09/17/18 07:02> Vital Signs (Past 24 Hours) Last Vital Signs Temp 36.6 C 09/17/18 03:30 Pulse 91 H 09/17/18 03:30 Resp 18 09/17/18 03:30 BP 121/74 09/17/18 03:30 Pulse Ox 96 09/17/18 03:30 Constitutional WD/WN, vitals as above Respiratory normal respiratory effort, lungs clear to auscultation Cardiovascular Rate/Rhythm: regular rate and regular rhythm Heart Sounds: no click, no gallop, no murmur and no cardiac rub Vessels: dorsalis pedis pulses present Extremities: + pedal edema (mild) Gastrointestinal (Abdomen) Inspection/Auscultation: abdomen normal to inspection Percussion/Palpation: abdomen soft; abdomen nontender Skin no rashes, warm and dry Genitourinary OB Exam Abdomen: + fundal height Fundus: + firm and + relation to umbilicus (At level of umbilicus); not tender <Karina Ramey MD, FACOG - Last Filed: 09/17/18 07:03> Co-Signing Physician Notes Resident Physician Supervision Note: I interviewed and examined the patient. Discussed with Dr. Patel and agree with findings and plan as documented in the note. Any exceptions or clarifications are listed here: Doing well. Routine care. Documented By: Karina Ramey MD, FACOG Resident Activity Tracking <Vinod Patel MD - Last Filed: 09/17/18 07:02> Resident Involvement: Resident Care Provided Care Provided: OB Delivery
[2018-09-17] MEDS: DOCUSATE SODIUM 100 MG CAP PO SCH ×2 (09:17→20:36)
[2018-09-17] MEDS: PRENATAL VITAMIN 1 TAB PO SCH (09:17)
[2018-09-17] MEDS: SERTRALINE HCL 50 MG TABLET PO SCH (09:17)
[2018-09-18] MEDS: IBUPROFEN 600 MG TAB PO PRN ×3 (04:16→20:28)
--- NOTE | 2018-09-18 07:26 | Obstetrical Progress Note ---
Date of Service September 18, 2018 Subjective Patient unavailable for exam or conversation this morning. She is in a small consultation room with her infant who is on level 2 nursery care (having issues with hypoglycemia yesterday per Dr. Maciel), and in discussion currently with Dr. Garcia. She appears to be seated in a rocker holding her and in no physical distress. Chart reviewed in lieu of rounds with patient at this time. Physical Exam Vital Signs (Past 24 Hours) Last Vital Signs Temp 36.6 C 09/18/18 00:20 Pulse 95 H 09/18/18 00:20 Resp 18 09/18/18 00:20 BP 137/81 09/18/18 00:20 Pulse Ox 99 09/18/18 00:20
[2018-09-18] MEDS: DOCUSATE SODIUM 100 MG CAP PO SCH ×2 (08:49→20:28)
[2018-09-18] MEDS: SERTRALINE HCL 50 MG TABLET PO SCH (08:49)
[2018-09-18] MEDS: PRENATAL VITAMIN 1 TAB PO SCH (08:49)
== END 2018-09-18 21:58 | disposition home or self-care (01) | DRG 807 ==
LOC: OPB 08:15 → 4S1 08:18 → 4S2 09-16 10:10

== ENCOUNTER 2023-12-31 07:30 | Inpatient (IN) ==
[2023-12-31] MEDS: LACTATED RINGER'S 1,000 ML IV PRN (07:47)
[2023-12-31] MEDS ORDERED: LIDOCAINE 1% LOCAL 20 ML VIAL INFIL PRN (08:01)
[2023-12-31] MEDS ORDERED: CALCIUM CARBONATE 500 MG CHEWABLE TAB PO PRN ×2 (08:01→16:02)
[2023-12-31] MEDS ORDERED: OXYTOCIN 30 UNITS/NSS 30 UNITS/500 ML BAG IV PRN (08:01)
[2023-12-31] MEDS ORDERED: ACETAMINOPHEN 325 MG TAB PO PRN (08:01)
[2023-12-31] MEDS ORDERED: SODIUM CHLORIDE 0.9% 1,000 ML IV PRN (08:30)
[2023-12-31] MEDS ORDERED: DEXTROSE 50% 50 ML SYRINGE IV PRN (08:30)
[2023-12-31 08:32] LABS: Hematocrit (blood only) 32.9 % (37.0-47.0); Hemoglobin 11.7 g/dl (12.0-16.0); Mean Corpuscular Hemoglobin 31.4 pg (25.0-34.0); Mean Corpuscular Hgb Conc 35.6 g/dL (32.0-36.0); Mean Corpuscular Volume 88.2 fL (80.0-100.0); Mean Platelet Volume 9.6 fL (9.4-12.4); Platelet Count 201 K/uL (130-400); RDW Coefficient of Variation 13.4 % (11.5-14.5); RDW Standard Deviation 43.4 fL (36.4-46.3); Red Blood Count 3.73 M/uL (4.20-5.40); White Blood Count 9.52 K/ul (4.8-10.8)
[2023-12-31] MEDS: OXYTOCIN 30 UNITS/NSS 30 UNITS/500 ML BAG IV PRN (09:00)
--- NOTE | 2023-12-31 09:22 | History & Physical Report ---
Date of Service December 31, 2023 Assessment & Plan (1) Encounter for supervision of normal intrauterine in multigravida, antepartum: Plan: Pt is a 33 y/o female currently at 4W1D GA with an NAVYA 12/30/23 as determined by LMP who is here for induction. Her was complicated by insulin controlled GDM. Pt is Rh negative Starting Pitocin 20 units/hr Monitor BGS q1h, insulin per sliding scale Continue valacyclovir 500mg BID Monitor BP Consult anesthesiology for epidural per pt request Admission and Anticipated Discharge Date Admission Date: December 31, 2023 History of Present Illness Primary Care Provider: Criss Julian, Pt is a33 y/o female currently at 4W1D GA with an NAVYA 12/30/23 as determined by LMP who is here for induction. Her was complicated by insulin controlled GDM. Pt is Rh negative _X contractions; _X movement; _ fluid loss; _ bloody show External FHT and external uterine monitors used; Category 1_ tracing; moderate FHT variability. Had regular appointments with OB. Labs: (05/21/23) Blood type: A- Antibody screen: neg H.7 (today) Hct: 32.9% (today) WBC: 9.52 (today) Plt:201 (today) Rubella: neg VDRL/RPR: non reactive Gonorrhea: neg Chlamydia: neg HIV: non reactive HbSAg: non reactive GBS: neg Other screens: cff-DNA: _ (see scanned documents) CF: neg SMA: neg Allergies Allergy/AdvReac Type Severity Reaction Status Date / Time No Known Drug Allergies Allergy Verified 12/30/23 08:51 Home Medications Medication Instructions Recorded Confirmed Type 21-iron fu-folic acid PO 05/18/23 12/30/23 History [ Complete] acetone (urine) test (Ketone Urine #50 ea 05/28/23 12/30/23 Rx Test strips) blood sugar diagnostic (Contour #200 ea 05/28/23 12/30/23 Rx Next Test Strips) lancets (Microlet Lancet) #200 ea 05/28/23 12/30/23 Rx blood sugar diagnostic (OneTouch #150 ea 08/06/23 12/30/23 Rx Verio test strips) blood-glucose meter (OneTouch #1 ea 08/06/23 12/30/23 Rx Verio Reflect Meter) insulin NPH isoph U-100 human 100 8 unit (0.08 mL) subcut QPM #15 mL 08/06/23 12/30/23 Rx unit/mL (3 mL) subcutaneous pen (Novolin N FlexPen) pen needle, diabetic 32 gauge x #50 ea 08/06/23 12/30/23 Rx 5/32" (BD Ultra-Fine Stefanie Pen Needle) valacyclovir 500 mg tablet 500 mg PO BID #6 tabs 08/14/23 12/30/23 Rx digital therapeutic,DIAMOND device #1 ea 09/23/23 12/30/23 Rx sumatriptan 20 mg/actuation nasal 20 mg intranasal Q2H PRN migraine 09/23/23 12/30/23 Rx spray headache 30 days #6 ea Patient History Medical History History of chicken pox GERD (gastroesophageal reflux disease) Polycystic ovarian syndrome (spontaneous vaginal delivery) Encounter for pre-operative examination Surgical History History of cholecystectomy History of tonsillectomy and adenoidectomy History of myringotomy [place] teeth extracted H/O bariatric surgery 2016 - sleeve 2021 - bypass Family History Father Family history of diabetes mellitus Other Diabetes No family history of adverse response to anesthesia No family history of bleeding disorder Denies family history of Ovarian cancer Breast cancer Colorectal cancer Social History (Updated 05/18/23 @ 09:52 by Eloise Tavarez) Smoking Status: Never smoker Second Hand Exposure: No; Do You Dip or Chew Tobacco: No; Hx Alcohol Use: No Hx Substance Use: No Preferred Language: Kitt[place] Communication Ability: 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 Denies breast pain. Denies dysuria. Denies headache or changes in vision. Physical Exam Physical Exam: General: Alert, oriented. No acute distress. Cardiac: Regular rate and rhythm, no murmurs/rubs/gallops. Respiratory: Clear to auscultation bilaterally a/p, no wheezes/rales/rhonchi. No increased work of breathing. Symmetrical chest rise. No respiratory distress. Abdomen: Soft, non tender Pelvic: Dilation 3.5 cm; Effacement 80%; Station -[address] Sidhu Lower Extremities: No lower extremity edema or swelling. No deep calf pain. Mary's negative bilaterally Results & Data Vital Signs (Past 12 Hours) Vital Signs Temp Pulse Resp BP 12/31/23 08:18 36.8 C 20 12/31/23 07:46 99 H 140/85 Code Status & VTE Plan VTE Prophylaxis Plan VTE Prophylaxis will be ordered: No
[2023-12-31] MEDS: DEXTROSE 5% 1,000 ML IV PRN (09:59)
[2023-12-31] MEDS ORDERED: ePHEDrine sulfate 50 MG/ML AMP IV PRN ×2 (10:38→15:44)
[2023-12-31] MEDS ORDERED: diphenhydrAMINE 50 MG/ML VIAL IV PRN ×2 (10:38→15:44)
[2023-12-31] MEDS ORDERED: BUPIVACAINE 0.25% PF 30 ML VIAL EPI PRN (10:38)
[2023-12-31] MEDS ORDERED: fentaNYL citrate PF 100 MCG/2 ML VIAL EPI PRN (10:38)
[2023-12-31] MEDS ORDERED: NALBUPHINE HCL INJ 10 MG/ML AMP IV PRN ×2 (10:38→15:44)
[2023-12-31] MEDS ORDERED: fentANYL 2 MCG/ML BUPIVacaine 0.125%-NSS 100ML BAG EPI PRN (10:38)
[2023-12-31] MEDS ORDERED: NALOXONE HCL 0.4 MG/1 ML VIAL/CARP IV PRN ×2 (10:38→15:44)
[2023-12-31] MEDS ORDERED: LIDOCAINE 2% MPF LOCAL 5 ML VIAL EPI PRN (10:38)
[2023-12-31] MEDS ORDERED: SODIUM CHLORIDE 0.9% PF INJ 10 ML VIAL EPI PRN (10:38)
[2023-12-31] MEDS ORDERED: NALOXONE HCL 1 MG in SODIUM CHLORIDE 0.9% 1,000 ML IV PRN ×2 (10:38→15:44)
[2023-12-31] MEDS ORDERED: ROPIVACAINE 0.5% PF 5 MG/ML 20 ML VIAL EPI PRN (10:38)
--- NOTE | 2023-12-31 10:38 | Anesthesiology Consultation ---
Date of Service December 31, 2023 Assessment & Plan (1) Encounter for pre-operative examination: Chart Review Chart Review: Patient NOT seen in Pre Admission Testing and Acceptable Risk for Labor Epidural Consults Requested none History Height/Weight Height: 5 ft 7 in Weight: 145.603 kg Allergies Allergy/AdvReac Type Severity Reaction Status Date / Time No Known Drug Allergies Allergy Verified 12/30/23 08:51 Medications Home Medications Medication Instructions Recorded Confirmed Last Taken 21-iron fu-folic acid PO 05/18/23 12/30/23 Unknown [ Complete] acetone (urine) test (Ketone Urine #50 ea 05/28/23 12/30/23 Unknown Test strips) blood sugar diagnostic (Contour #200 ea 05/28/23 12/30/23 Unknown Next Test Strips) lancets (Microlet Lancet) #200 ea 05/28/23 12/30/23 Unknown blood sugar diagnostic (OneTouch #150 ea 08/06/23 12/30/23 Unknown Verio test strips) blood-glucose meter (OneTouch #1 ea 08/06/23 12/30/23 Unknown Verio Reflect Meter) insulin NPH isoph U-100 human 100 8 unit (0.08 mL) subcut QPM #15 mL 08/06/23 12/30/23 Unknown unit/mL (3 mL) subcutaneous pen (Novolin N FlexPen) pen needle, diabetic 32 gauge x #50 ea 08/06/23 12/30/23 Unknown 5/32" (BD Ultra-Fine Stefanie Pen Needle) valacyclovir 500 mg tablet 500 mg PO BID #6 tabs 08/14/23 12/30/23 Unknown digital therapeutic,DIAMOND device #1 ea 09/23/23 12/30/23 Unknown sumatriptan 20 mg/actuation nasal 20 mg intranasal Q2H PRN migraine 09/23/23 12/30/23 Unknown spray headache 30 days #6 ea Active Medications Generic Name Dose Route Start Last Admin Trade Name Freq PRN Reason Stop Dose Admin Oxytocin 30 units in 500 mls @ 6 mls/hr 12/31/23 08:01 12/31/23 10:00 Pitocin 30 Units/Nss IV 01/02/24 08:00 0.36 units/hr .Q24H PRN 6 mls/hr Labor Induction/Augmentation Titration Protocol 0.36 UNITS/HR Lactated Ringer's 1,000 mls @ 125 mls/hr 12/31/23 08:01 12/31/23 10:31 Lr IV 01/02/24 08:00 125 mls/hr .Q8H PRN Infusion L&D Protocol Protocol Dextrose 1,000 mls @ 100 mls/hr 12/31/23 08:30 12/31/23 09:59 D5w IV 01/30/24 08:29 100 mls/hr .Q10H PRN Administration BSG 180 or below Protocol Past Medical History Medical History History of chicken pox GERD (gastroesophageal reflux disease) Polycystic ovarian syndrome (spontaneous vaginal delivery) Encounter for pre-operative examination Past Family History Family History Father Family history of diabetes mellitus Other Diabetes No family history of adverse response to anesthesia No family history of bleeding disorder Denies family history of Ovarian cancer Breast cancer Colorectal cancer Past Surgical History Surgical History History of cholecystectomy History of tonsillectomy and adenoidectomy History of myringotomy [place] teeth extracted H/O bariatric surgery 2016 - sleeve 2021 - bypass Social History Smoking Status: Never smoker Do You Dip or Chew Tobacco: No Hx Alcohol Use: No alcohol intake frequency: holidays/special occasions only Hx Substance Use: No substance use type: does not use Physical Exam Vital Signs Last Vital Signs Temp 98.2 F 12/31/23 08:18 Pulse 88 12/31/23 10:33 Resp 20 12/31/23 08:18 BP 137/75 12/31/23 10:05 Pulse Ox 97 12/31/23 10:33 Testing Laboratory Results 12/31/23 08:11 12/31/23 09:58 POC Glucose 75
[2023-12-31] MEDS: fentANYL 2 MCG/ML BUPIVacaine 0.125%-NSS 100ML BAG ONE (10:58)
[2023-12-31] MEDS: BUPIVACAINE 0.25% PF 30 ML VIAL ONE (10:58)
[2023-12-31] MEDS: LIDOCAINE 2%/EPINEPHRINE 1:200,000 20 ML PF ONE (10:58)
[2023-12-31] MEDS: INSULIN REGULAR 250 UNITS in SODIUM CHLORIDE 0.9% 247.5 ML IV PRN (12:01)
[2023-12-31] MEDS: fentaNYL citrate PF 100 MCG/2 ML VIAL EPI STA (13:04)
[2023-12-31] MEDS: fentaNYL citrate PF 100 MCG/2 ML VIAL ONE (13:04)
--- NOTE | 2023-12-31 14:25 | Labor Progress Brief Note ---
Date of Service December 31, 2023 Note late documentation due to taking care of the patient patient was being induced for gestational diabetes on insulin Pitocin was started and then membranes ruptured spontaneously she has an epidural unfortunately she has had repetitive decelerations multiple efforts to reduce these decelerations are currently undergoing and have been undergone including fluid boluses oxygen turning off the Pitocin position changes and a amnioinfusion Despite all these efforts she maintains at 6 cm -1 station and then had a prolonged decel I discussed with the patient while she is a multipara so there is a concern that the baby is not tolerating contractions well with significant D cells and I recommended section we discussed the risks including bleeding infection injury to internal organs. Patient agrees we will proceed to section. The patient was counseled to the nature of the procedure including alternatives such as labor. Risks were discussed including bleeding infection injury to bowel bladder ureter vessels and even baby. Deep Vein thrombosis, pulmonary embolus discussed. Breakdown of incision reviewed. Deep vein thrombosis pulmonary embolus hernia and failure of the incision to heal were discussed Patient verbalized understanding of this and was given ample time to ask questions Assessment & Plan Admission and Anticipated Discharge Date Admission Date: December 31, 2023 Results & Data Vital Signs (Past 12 Hours) Vital Signs Temp Pulse Resp BP Pulse Ox 12/31/23 14:22 100 12/31/23 14:22 85 12/31/23 14:13 12/31/23 14:13 107 H 12/31/23 14:08 12/31/23 14:08 94 H 12/31/23 14:03 100 12/31/23 14:03 87 12/31/23 13:58 12/31/23 13:58 84 12/31/23 13:56 78 12/31/23 13:56 122/63 12/31/23 13:54 18 12/31/23 13:54 97.9 F 18 12/31/23 13:53 100 12/31/23 13:53 83 12/31/23 13:48 100 12/31/23 13:48 89 12/31/23 13:43 100 12/31/23 13:43 84 12/31/23 13:41 78 12/31/23 13:41 117/56 L 12/31/23 13:38 100 12/31/23 13:38 77 12/31/23 13:33 100 12/31/23 13:33 95 H 12/31/23 13:28 100 12/31/23 13:28 104 H 12/31/23 13:24 68 12/31/23 13:24 102/57 L 12/31/23 13:23 100 12/31/23 13:23 67 12/31/23 13:18 100 12/31/23 13:18 80 12/31/23 13:13 100 12/31/23 13:13 96 H 12/31/23 13:12 80 12/31/23 13:12 118/56 L 12/31/23 13:08 100 12/31/23 13:08 74 12/31/23 13:03 100 12/31/23 13:03 95 H 12/31/23 13:03 94 12/31/23 13:03 92 H 12/31/23 12:58 100 12/31/23 12:58 82 12/31/23 12:54 116/75 12/31/23 12:53 100 12/31/23 12:53 83 12/31/23 12:48 100 12/31/23 12:48 90 12/31/23 12:43 100 12/31/23 12:43 79 12/31/23 12:39 80 12/31/23 12:39 138/66 12/31/23 12:38 100 12/31/23 12:38 79 12/31/23 12:33 100 12/31/23 12:33 81 12/31/23 12:28 100 12/31/23 12:28 85 12/31/23 12:24 91 H 12/31/23 12:24 132/61 12/31/23 12:23 100 12/31/23 12:23 93 H 12/31/23 12:18 100 12/31/23 12:18 80 12/31/23 12:13 100 12/31/23 12:13 107 H 12/31/23 12:09 82 12/31/23 12:09 139/67 12/31/23 12:08 100 12/31/23 12:08 81 12/31/23 12:03 100 12/31/23 12:03 88 12/31/23 11:58 100 12/31/23 11:58 83 12/31/23 11:56 85 12/31/23 11:56 142/70 H 12/31/23 11:53 100 12/31/23 11:53 86 12/31/23 11:48 100 12/31/23 11:48 96 H 12/31/23 11:43 100 12/31/23 11:43 87 12/31/23 11:40 110 H 12/31/23 11:40 118/73 12/31/23 11:38 100 12/31/23 11:38 81 12/31/23 11:33 99 12/31/23 11:33 87 12/31/23 11:28 100 12/31/23 11:28 90 12/31/23 11:24 91 H 12/31/23 11:24 126/59 L 12/31/23 11:23 100 12/31/23 11:23 89 12/31/23 11:18 100 12/31/23 11:18 94 H 12/31/23 11:13 100 12/31/23 11:13 91 H 12/31/23 11:08 100 12/31/23 11:08 108 H 12/31/23 11:07 88 12/31/23 11:07 139/74 12/31/23 11:04 93 H 12/31/23 11:04 140/71 12/31/23 11:03 100 12/31/23 11:03 93 H 12/31/23 11:01 99 H 12/31/23 11:01 133/69 12/31/23 10:58 100 12/31/23 10:58 90 12/31/23 10:58 85 12/31/23 10:58 136/76 12/31/23 10:54 93 12/31/23 10:54 96 H 12/31/23 10:53 100 12/31/23 10:53 79 12/31/23 10:52 80 12/31/23 10:52 126/77 12/31/23 10:48 100 12/31/23 10:48 65 12/31/23 10:43 100 12/31/23 10:43 101 H 12/31/23 10:38 100 12/31/23 10:38 88 12/31/23 10:33 97 12/31/23 10:33 88 12/31/23 10:05 79 12/31/23 10:05 137/75 12/31/23 08:18 98.2 F 20 12/31/23 07:46 99 H 140/85 Coding Level of Care Code None
[2023-12-31] MEDS ORDERED: ceFAZolin 2000MG 2,000 MG/15 ML SYR IV ONE (14:30)
[2023-12-31] MEDS: CARBOPROST TROMETHAMINE 250 MCG/ML AMPUL IM ONE (14:45)
[2023-12-31] MEDS ORDERED: OXYTOCIN 10 UNITS/ML VIAL ONE (14:46)
[2023-12-31] MEDS ORDERED: ceFAZolin 330 MG/ML 1 GM VIAL ONE (14:46)
[2023-12-31] MEDS ORDERED: MoRPHine SULFATE PF 1 MG/ML 10 ML AMP/VIAL ONE (14:46)
[2023-12-31] MEDS ORDERED: LIDOCAINE 2%/EPINEPHRINE 1:200,000 20 ML PF ONE (14:46)
[2023-12-31] MEDS ORDERED: CARBOPROST TROMETHAMINE 250 MCG/ML AMPUL ONE (14:57)
[2023-12-31] MEDS ORDERED: ePHEDrine sulfate 50 MG/5 ML SYR ONE (14:59)
[2023-12-31 15:26] LABS: Base Excess Cord Arterial Bld -5.6 mEq/L (-9-1.8); Base Excess Cord Venous Blood -2.9 mEq/L (-7.7-1.9); CO2 Cord Arterial Blood 66 mmHg (39.1-73.5); Cord Venous Blood HCO3 25 mmol/L (18.4-26.8); Cord Venous Blood PCO2 54 mmHg (30.4-57.2); Cord Venous Blood PO2 < 20 mmHg (14.1-43.3); Cord Venous Blood pH 7.27 (7.20-7.44); HCO3 Cord Arterial Blood 24 mmol/L (19.7-28.5); O2 Saturation Cord Venous Bld < 60.0 % (<68); Oxygen Sat Cord Arterial Blood < 60.0 % (<60); PO2 Cord Arterial Blood < 20 mmHg (4.1-31.7); pH Cord Arterial Blood 7.17 (7.1-7.38)
[2023-12-31] MEDS ORDERED: SODIUM BICARB 8.4% INJ 50 MEQ/50 ML SYR IV ONE (15:29)
[2023-12-31] MEDS ORDERED: NALOXONE HCL 0.08 MG in SYRINGE 1.8 ML IV PRN (15:44)
[2023-12-31] MEDS ORDERED: MoRPHine SULFATE PF 1 MG/ML 10 ML AMP/VIAL EPI ONE (15:44)
[2023-12-31] MEDS ORDERED: HYDROmorphone INJ 0.5 MG/0.5 ML SYR IV PRN (15:44)
[2023-12-31] MEDS ORDERED: LACTATED RINGER'S 500 ML IV PRN (15:44)
[2023-12-31] MEDS ORDERED: SODIUM CHLORIDE 0.9% 1,000 ML IV SCH (15:45)
[2023-12-31] MEDS ORDERED: NO NARCOTICS OR SEDATIVES SCH (15:45)
[2023-12-31] MEDS ORDERED: DC INTRASPINAL MORPHINE SCH (15:45)
[2023-12-31] MEDS ORDERED: BENZOCAINE 20% SPRY 85 APPLN/85 GM CAN EXT PRN (16:02)
[2023-12-31] MEDS ORDERED: HYDROCORTISONE ACETATE 25 MG SUPP PR PRN (16:02)
[2023-12-31] MEDS ORDERED: DIPHTHER/TETAN/PERTUS Vaccine (Tdap, Adol/Adult) 0.5mL IM ONE (16:02)
[2023-12-31] MEDS ORDERED: LACTATED RINGER'S 1,000 ML IV SCH (16:15)
[2023-12-31] MEDS ORDERED: IBUPROFEN 600 MG TAB PO SCH (16:15)
[2023-12-31] MEDS: ACETAMINOPHEN 1,000 MG/100 ML VIAL IV PRN (16:16)
--- NOTE | 2023-12-31 16:16 | Operative Report ---
Post Operative Report Pre & Post Diagnosis Operation Date: 12/31/23 14:30 Pre-Op Diagnosis: intolerance to labor Post-Op Diagnosis: intolerance to labor I identified the patient and participated in the time-out.: Yes Procedure Operation Date: 12/31/23 14:30 Actual Procedures p Section in LD delivery of live male child at 1450 - Dong Sidhu MD, FACOG Surgeon Dong Sidhu MD, FACOG Corn Picker nikolai Sweeney Quantitative Blood Loss (QBL) 785 Findings Consistent with Post-Op Diagnosis Specimens cord gases and blood Description of Procedure Regional anesthetic had been given by anesthesia patient was prepped and draped with a leftward tilt preoperative antibiotics had been given in appropriate t iming by anesthesiology. Once the prep was allowed to fully dry timeout was performed. Pickups with teeth were used to test the incision area was found to be adequate for incision as the patient did not feel sharp pain. Scalpel was used to make a Pfannenstiel incision on the lower abdomen. We then cut through the subcutaneous fat down to the level of the anterior rectus sheath fascia this was cut in the midline and then extended laterally with the curved Heredia scissors. At this stage we then placed 2 Griselda clamps on the anterior aspect of the fascia. Using the curved Heredia's we are able to dissect the fascia superiorly away from the rectus muscles. Care was taken to maintain hemostasis. Griselda clamps were then placed to the inferior aspect of the anterior sheath of the fascia. Fascia was then dissected away from the rectus muscles inferiorly towards the pubic bone. A Griselda was then placed in the midline both inferiorly and superiorly. This was to allow exposure by retraction rectus muscles were in the midline with were then able to cut through the peritoneum and then enter the peritoneal cavity. Opening was enlarged to allow exposure of the peritoneal cavity both superiorly and inferiorly. Once adequate space was obtained a bladder retractor was placed to expose the lower segment Metzenbaums were used to dissect the bladder flap inferiorly away from the uterus. This was done sharply bladder retractor was then repositioned to expose the lower segment of the uterus Fresh scalpel was used to make a low transverse incision on the uterus. Uterus was then entered bluntly with the operators finger, membranes ruptured and the opening was enlarged using the operators fingers bluntly pulling superiorly and inferiorly to allow exposure. there was a loose nuchal cord and cord by the head. no prolapse of cord Baby was delivered by first flexion of the head elevation of the head out of the pelvis and then pressure by the employment assistant on the maternal abdomen. Baby's head was then delivered mouth and then nares were suctioned and then using gentle traction the baby was fully delivered. Live vigorous . Fluid was clear cord clamped and cut cord gases obtained cord blood obtained baby handed to pediatrics. Placenta removed was removed with traction we ensure the entire placenta was removed with a moist lap sponge into the uterus Uterus was then exteriorized. IV Pitocin had been started by anesthesia tone improved there were no extensions the uterus was then closed using 0 Monocryl in a 2 layer closure the first layer closed in a running locked fashion from left to right and then a second closure from left to right in a running nonlocked fashion. At this stage hemostasis was excellent. Uterus was placed back in the peritoneal cavity with suction irrigation out and inspection of the uterus at this stage revealed excellent hemostasis Retractors were removed urine color was clear at this stage of the case we inspected the rectus muscles they were hemostatic fascia was closed with 0 Vicryl subcutaneous fat was irrigated and closed with 3-0 Vicryl skin closed with 4-0 subcuticular Monocryl eduin dressing I attest to the content of the Intraoperative Record and any orders documented therein. Any exceptions are noted below. OB Procedure Charges 69986
--- NOTE | 2023-12-31 16:50 | Anesthesiology Progress Note ---
Date of Service December 31, 2023 Anesthesia Post Procedure Vital Signs Vital Signs: Temp Pulse Resp BP Pulse Ox 12/31/23 16:46 97 12/31/23 16:46 100 H 12/31/23 16:41 99 12/31/23 16:41 87 12/31/23 16:41 115/57 L 12/31/23 16:36 99 12/31/23 16:36 89 12/31/23 16:31 99 12/31/23 16:31 92 H 12/31/23 16:31 115/58 L 12/31/23 16:26 98 12/31/23 16:26 95 H 12/31/23 16:21 99 12/31/23 16:21 98 H 12/31/23 16:21 112/58 L 12/31/23 16:16 99 12/31/23 16:16 100 H 12/31/23 16:11 98 12/31/23 16:11 96 H 12/31/23 16:11 116/59 L 12/31/23 16:06 100 12/31/23 16:06 95 H 12/31/23 16:02 86 12/31/23 16:02 121/59 L 12/31/23 16:01 100 12/31/23 16:01 89 12/31/23 15:56 100 12/31/23 15:56 84 12/31/23 15:52 88 12/31/23 15:52 121/55 L 12/31/23 15:51 100 12/31/23 15:51 89 12/31/23 15:50 18 12/31/23 15:46 100 12/31/23 15:46 86 12/31/23 15:45 89 12/31/23 15:45 120/60 12/31/23 15:41 100 12/31/23 15:41 88 12/31/23 15:41 88 12/31/23 15:41 121/61 12/31/23 15:40 36.5 C 20 12/31/23 14:31 97 H 12/31/23 14:31 124/59 L 12/31/23 14:27 100 12/31/23 14:27 88 12/31/23 14:24 82 12/31/23 14:24 129/75 12/31/23 14:22 100 12/31/23 14:22 85 12/31/23 14:13 100 12/31/23 14:13 107 H 12/31/23 14:08 100 12/31/23 14:08 94 H 12/31/23 14:03 100 12/31/23 14:03 87 12/31/23 13:58 100 12/31/23 13:58 84 12/31/23 13:56 78 12/31/23 13:56 122/63 12/31/23 13:54 18 12/31/23 13:54 36.6 C 18 12/31/23 13:53 100 12/31/23 13:53 83 12/31/23 13:48 100 12/31/23 13:48 89 12/31/23 13:43 100 12/31/23 13:43 84 12/31/23 13:41 78 12/31/23 13:41 117/56 L 12/31/23 13:38 100 12/31/23 13:38 77 12/31/23 13:33 100 12/31/23 13:33 95 H 12/31/23 13:28 100 12/31/23 13:28 104 H 12/31/23 13:24 68 12/31/23 13:24 102/57 L 12/31/23 13:23 100 12/31/23 13:23 67 12/31/23 13:18 100 12/31/23 13:18 80 12/31/23 13:13 100 12/31/23 13:13 96 H 12/31/23 13:12 80 12/31/23 13:12 118/56 L 12/31/23 13:08 100 12/31/23 13:08 74 12/31/23 13:03 100 12/31/23 13:03 95 H 12/31/23 13:03 94 12/31/23 13:03 92 H 12/31/23 12:58 100 12/31/23 12:58 82 12/31/23 12:54 116/75 12/31/23 12:53 100 12/31/23 12:53 83 12/31/23 12:48 100 12/31/23 12:48 90 12/31/23 12:43 100 12/31/23 12:43 79 12/31/23 12:39 80 12/31/23 12:39 138/66 12/31/23 12:38 100 12/31/23 12:38 79 12/31/23 12:33 100 12/31/23 12:33 81 12/31/23 12:28 100 12/31/23 12:28 85 12/31/23 12:24 91 H 12/31/23 12:24 132/61 12/31/23 12:23 100 12/31/23 12:23 93 H 12/31/23 12:18 100 12/31/23 12:18 80 12/31/23 12:13 100 12/31/23 12:13 107 H 12/31/23 12:09 82 12/31/23 12:09 139/67 12/31/23 12:08 100 12/31/23 12:08 81 12/31/23 12:03 100 12/31/23 12:03 88 12/31/23 11:58 100 12/31/23 11:58 83 12/31/23 11:56 85 12/31/23 11:56 142/70 H 12/31/23 11:53 100 12/31/23 11:53 86 12/31/23 11:48 100 12/31/23 11:48 96 H 12/31/23 11:43 100 12/31/23 11:43 87 12/31/23 11:40 110 H 12/31/23 11:40 118/73 12/31/23 11:38 100 12/31/23 11:38 81 12/31/23 11:33 99 12/31/23 11:33 87 12/31/23 11:28 100 12/31/23 11:28 90 12/31/23 11:24 91 H 12/31/23 11:24 126/59 L 12/31/23 11:23 100 12/31/23 11:23 89 12/31/23 11:18 100 12/31/23 11:18 94 H 12/31/23 11:13 100 12/31/23 11:13 91 H 12/31/23 11:08 100 12/31/23 11:08 108 H 12/31/23 11:07 88 12/31/23 11:07 139/74 12/31/23 11:04 93 H 12/31/23 11:04 140/71 09/05/24 11:03 100 12/31/23 11:03 93 H 12/31/23 11:01 99 H 12/31/23 11:01 133/69 12/31/23 10:58 100 12/31/23 10:58 90 12/31/23 10:58 85 12/31/23 10:58 136/76 12/31/23 10:54 93 12/31/23 10:54 96 H 12/31/23 10:53 100 12/31/23 10:53 79 12/31/23 10:52 80 12/31/23 10:52 126/77 12/31/23 10:48 100 12/31/23 10:48 65 12/31/23 10:43 100 12/31/23 10:43 101 H 12/31/23 10:38 100 12/31/23 10:38 88 12/31/23 10:33 97 12/31/23 10:33 88 12/31/23 10:05 79 12/31/23 10:05 137/75 12/31/23 08:18 36.8 C 20 12/31/23 07:46 99 H 140/85 Pain Intensity Abdomen: Pain Intensity: 4 Transfer of Care Handoff Completed per policy Notes Mental Status: alert / awake / arousable Nausea / Vomiting: adequately controlled Pain: adequately controlled Airway Patency, RR, SpO2: stable & adequate BP & HR: stable & adequate Hydration State: stable & adequate Neuraxial Anesthesia: was administered and sensory block is resolving Anesthetic Complications: no major complications apparent and Pt Satisfied with anesthetic care
[2023-12-31] MEDS ORDERED: Nursing to Pharmacy Communication SCH (19:45)
[2023-12-31] MEDS ORDERED: SODIUM CHLORIDE 0.9% 250 ML IV PRN (19:52)
[2023-12-31] MEDS: SODIUM CHLORIDE 0.9% PF INJ 10 ML VIAL ONE (20:04)
[2023-12-31] MEDS: SODIUM CHLORIDE 0.9% PF INJ 10 ML VIAL EPI STA (20:04)
[2023-12-31] MEDS: ePHEDrine sulfate 50 MG/ML AMP ONE (20:04)
[2023-12-31] MEDS: BUPIVACAINE 0.25% PF 30 ML VIAL EPI STA (20:04)
[2023-12-31] MEDS: LIDOCAINE 2%/EPINEPHRINE 1:200,000 20 ML PF EPI STA (20:04)
[2023-12-31] MEDS: ACETAMINOPHEN 325 MG TAB PO SCH (20:05)
[2023-12-31] MEDS: SIMETHICONE 80 MG CHEW PO SCH (20:07)
[2023-12-31] MEDS: OXYTOCIN 20 UNITS/LR 1,002 ML IV SCH (20:08)
[2023-12-31] MEDS: ONDANSETRON INJ 2 MG/ML 2 ML VIAL IV PRN (20:15)
[2023-12-31] MEDS: DOCUSATE SODIUM 100 MG CAP PO SCH (22:06)
[2023-12-31] MEDS: PROMETHAZINE 12.5 MG/50.5 ML BAG IV PRN (22:38)
--- NOTE | 2024-01-01 06:12 | Obstetrical Progress Note ---
Date of Service January 01, 2024 Assessment & Plan (1) Encounter for supervision of normal intrauterine in multigravida, antepartum: Plan Pt is a 33 y/o female currently is POD 1 from delivery. Her was complicated by insulin controlled GDM. Pt is Rh negative Insulin stopped after delivery Dilaudid or Tylenol q4-6h PRN for pain Continue valacyclovir 500mg BID Encourage ambulation and breast feeding Monitor incision, dressing to be removed in 7 days Monitor BP Admission and Anticipated Discharge Date Admission Date: December 31, 2023 Supervising Physician Co-Signing Physician Notes Resident Physician Supervision Note: I was present with [Name of resident] during the history and exam. I discussed the case with the resident and agree with the findings and plan as documented in the note. Any exceptions or clarifications are listed here: [None] Documented By: Dong Sidhu MD, FACOG Subjective Pt is 33 yo post- day 1 s/p at 40w1d. complicated by Insulin controlled GDM and Rh neg. Ambulation: short distances in room Voiding:voiding normally Passing gas: yes BM: none Diet tolerance:regular diet Lochia:bloody, no clots Feeding type: breast, supplement with formula Current pain level: 2-6 /10 improved with Dilaudid and Tylenol Resting comfortably this morning in NAD. Denies GABRIEL, CP, SOB, N/V/D, LE pain/swelling. Review of Systems Review of Systems: As per HPI Physical Exam Constitutional: WD/WN, vitals as above Respiratory: normal respiratory effort, lungs clear to auscultation Cardiovascular: RRR, no murmur, no edema Gastrointestinal (Abdomen): normal bowel sounds, soft, nontender, no hepatosplenomegaly Uterine fundus firm at level of umbilicus Incision covered by DELILAH Neurologic: PERRL, EOMI, accommodation nl, no face palsy, no dysarthria Moving all 4 extremities on command Psychiatric: A+Ox3, euthymic affect Results & Data Diagnostic Findings Temp Pulse Resp BP Pulse Ox O2 Del Method 36.5 C 76 18 140/81 100 Room Air 12/31/23 23:00 12/31/23 23:00 12/31/23 23:00 12/31/23 23:00 12/31/23 23:00 12/31/23 23:00 Resident Activity Tracking Resident Involvement: Resident Care Provided Care Provided: Adult Hospital Medicine
[2024-01-01 07:24] LABS: Basophils # (auto) 0.02 K/uL (0.00-0.20); Basophils % (auto) 0.2 %; Eosinophils # (auto) 0.01 K/uL (0.00-0.50); Eosinophils % (auto) 0.1 %; Hematocrit (blood only) 29.7 % (37.0-47.0); Hemoglobin 9.9 g/dl (12.0-16.0); Immature Granulocytes # (auto) 0.04 K/uL (0.01-0.20); Immature Granulocytes % (auto) 0.4 %; Lymphocytes # (auto) 0.87 K/uL (1.20-3.40); Mean Corpuscular Hemoglobin 30.1 pg (25.0-34.0); Mean Corpuscular Hgb Conc 33.3 g/dL (32.0-36.0); Mean Corpuscular Volume 90.3 fL (80.0-100.0); Mean Platelet Volume 9.5 fL (9.4-12.4); Monocytes # (auto) 0.65 K/uL (0.11-0.59); Neutrophils # (auto) 9.27 K/uL (1.40-6.50); Neutrophils % (auto) 85.3 %; Platelet Count 153 K/uL (130-400); RDW Coefficient of Variation 13.3 % (11.5-14.5); RDW Standard Deviation 44.4 fL (36.4-46.3); Red Blood Count 3.29 M/uL (4.20-5.40); White Blood Count 10.86 K/ul (4.8-10.8)
[2024-01-01] MEDS: FERROUS SULFATE 325 MG TAB PO SCH (08:20)
[2024-01-01] MEDS: PRENATAL VITAMIN 1 TAB PO SCH (08:20)
[2024-01-01] MEDS ORDERED: ONDANSETRON INJ 2 MG/ML 2 ML VIAL IV PRN (09:45)
[2024-01-01] MEDS ORDERED: diphenhydrAMINE 50 MG/ML VIAL IV PRN (09:45)
[2024-01-01] MEDS ORDERED: diphenhydrAMINE Capsule 25 MG CAP PO PRN (09:45)
[2024-01-01] MEDS ORDERED: HYDROmorphone INJ 0.5 MG/0.5 ML SYR IV PRN (09:45)
[2024-01-01] MEDS: oxyCODONE HCL IR 5 MG TAB (IMMEDIATE RELEASE) PO PRN (10:13)
[2024-01-01] MEDS: SENNA 8.6 MG TAB PO PRN (20:30)
[2024-01-01 23:06] VITALS: TEMP 99.1
--- NOTE | 2024-01-02 06:10 | Obstetrical Progress Note ---
Date of Service January 02, 2024 Assessment & Plan (1) Encounter for supervision of normal intrauterine in multigravida, antepartum: Plan Pt is a 33 y/o female currently is POD 2 from delivery. Her was complicated by insulin controlled GDM. Pt is Rh negative Tylenol or oxycodone q6h PRN for pain Continue valacyclovir 500mg BID Encourage ambulation and breast feeding Monitor incision, dressing to be removed in 5 days Monitor vitals Pt to discharge home, follow up with Dr. Sidhu in 5 days Admission and Anticipated Discharge Date Admission Date: December 31, 2023 Supervising Physician Co-Signing Physician Notes Resident Physician Supervision Note: I was present with Dr. Baldwin during the history and exam. I discussed the case with the resident and agree with the findings and plan as documented in the note. Any exceptions or clarifications are listed here: pt doing well, eating, voiding, ambulating, pain well controlled, breast feeding. exam abd soft ff 2 down nt, incision with DELILAH dressing. NT calves. POD #2 s/p repeat c/s, desires dc home. hgb noted. routine instructions reviewed. needs to call to plan 7d post op check in office to remove DELILAH. routine f/u 6wk pp. not really using oxycodone, small amt sent to pharm in case needs. no issues seen on papdmp. Documented By: Amairani Farrell MD, FACOG Subjective Pt is 33 yo post- day 2 s/p at 40w1d. complicated by Insulin controlled GDM and Rh neg. Ambulation: short distances in room Voiding:voiding normally Passing gas: yes BM: none Diet tolerance:regular diet Lochia:bloody, no clots Feeding type: breast, supplement with formula Current pain level: 2-6 /10 improved with Oxycodone and Tylenol Resting comfortably this morning in NAD. Denies GABRIEL, CP, SOB, N/V/D, LE pain/swelling. Review of Systems Review of Systems: As per HPI Physical Exam Constitutional: WD/WN, vitals as above Respiratory: normal respiratory effort, lungs clear to auscultation Cardiovascular: RRR, no murmur, no edema Gastrointestinal (Abdomen): normal bowel sounds, soft, nontender, no hepatosplenomegaly Uterine fundus firm at 1 -2 cm below umbilicus Neurologic: PERRL, EOMI, accommodation nl, no face palsy, no dysarthria Moving all 4 extremities on command Psychiatric: A+Ox3, euthymic affect Results & Data Vital Signs (Past 12 Hours) Vital Signs Temp Pulse Pulse Resp BP BP Pulse Ox 01/01/24 23:03 37.3 C 101 H 18 129/83 100 01/01/24 19:10 36.8 C 99 H 20 119/78 100 01/01/24 18:38 36.9 C 88 18 118/80 99 O2 Del Method 01/01/24 23:03 Room Air 01/01/24 19:10 Room Air 01/01/24 18:38 Resident Activity Tracking Resident Involvement: Resident Care Provided Care Provided: Adult Hospital Medicine
[2024-01-02 06:37] LABS: Hematocrit (blood only) 28.8 % (37.0-47.0); Hemoglobin 9.7 g/dl (12.0-16.0)
[2024-01-02 08:13] VITALS: BP 138/89; RESP 17; O2SAT 97
[2024-01-02] MEDS: MAGNESIUM HYDROXIDE SUSP 30 ML UDC PO PRN (08:28)
[2024-01-02] MEDS: bisacodyL 5 MG TABEC PO SCH (08:30)
[2024-01-02 11:22] VITALS: PULSE 101
[2024-01-02] MEDS ORDERED: bisacodyL 10 MG SUPP PR PRN (15:36)
[2024-01-02] MEDS ORDERED: IBUPROFEN 600 MG TAB PO PRN (15:36)
[2024-01-02] MEDS ORDERED: ACETAMINOPHEN 325 MG TAB PO PRN (15:36)
--- NOTE | 2024-01-05 07:50 | Discharge Summary ---
Date of Service January 05, 2024 Admission HPI Per Admitting Provider Pt is a33 y/o female currently at 4W1D GA with an NAVYA 12/30/23 as determined by LMP who is here for induction. Her was complicated by insulin controlled GDM. Pt is Rh negative _X contractions; _X movement; _ fluid loss; _ bloody show External FHT and external uterine monitors used; Category 1_ tracing; moderate FHT variability. Had regular appointments with OB. Labs: (05/21/23) Blood type: A- Antibody screen: neg H.7 (today) Hct: 32.9% (today) WBC: 9.52 (today) Plt:201 (today) Rubella: neg VDRL/RPR: non reactive Gonorrhea: neg Chlamydia: neg HIV: non reactive HbSAg: non reactive GBS: neg Other screens: cff-DNA: _ (see scanned documents) CF: neg SMA: neg Discharge Data Consultations 12/31/23 08:01 Consult Anesthesiology Stat Procedures Performed Operation Date: 12/31/23 14:30 Actual Procedures p Section in LD delivery of live male child at 1450 - J. Farhan Sidhu MD, [facility] Course (1) Encounter for supervision of normal intrauterine in multigravida, antepartum: Plan Pt is a 33 y/o female currently is POD 2 from delivery. Her was complicated by insulin controlled GDM. Pt is Rh negative Tylenol or oxycodone q6h PRN for pain Continue valacyclovir 500mg BID Encourage ambulation and breast feeding Monitor incision, dressing to be removed in 5 days Monitor vitals Pt to discharge home, follow up with Dr. Sidhu in 5 days Supervising Physician Co-Signing Physician Notes Resident Physician Supervision Note: I was present with Dr. Baldwin during the history and exam. I discussed the case with the resident and agree with the findings and plan as documented in the note. Any exceptions or clarifications are listed here: pt doing well, eating, voiding, ambulating, pain well controlled, breast feeding. exam abd soft ff 2 down nt, incision with DELILAH dressing. NT calves. POD #2 s/p repeat c/s, desires dc home. hgb noted. routine instructions reviewed. needs to call to plan 7d post op check in office to remove DELILAH. routine f/u 6wk pp. not really using oxycodone, small amt sent to pharm in case needs. no issues seen on papdmp. Documented By: Amairani Farrell MD, FACOG Coding Level of Care Code None Diagnoses Encounter for supervision of normal intrauterine in multigravida, antepartum Z34.80
== END 2024-01-02 14:00 | disposition home or self-care (01) | DRG 788 ==
LOC: 4S1 07:30 → 4E2 19:30
DX: O48.0 Post-term pregnancy; Z67.11 Type A blood, Rh negative; Z3A.41 41 weeks gestation of pregnancy; O69.81X0 Labor and delivery complicated by cord around neck, without compression, not applicable or unspecified; O24.424 Gestational diabetes mellitus in childbirth, insulin controlled; Z37.0 Single live birth; O26.893 Other specified pregnancy related conditions, third trimester; O76 Abnormality in fetal heart rate and rhythm complicating labor and delivery